=== PATIENT | female | born 1955 | race Caucasian/White ===

== ENCOUNTER 2020-10-15 08:25 | Outpatient (REF) | payer MEDICARE, SELFPAY ==
--- NOTE | 2020-10-15 | US_ITS ---
EXAMINATION: US ABDOMEN COMPLETE CLINICAL INFORMATION: Increased liver function. COMPARISON: MRI abdomen 12/27/2015. Ultrasound abdomen 08/19/2015. TECHNIQUE: Real-time imaging of the abdominal viscera. FINDINGS: PANCREAS: Normal. ABDOMINAL AORTA: The proximal, mid, and distal segments are normal in caliber. INFERIOR VENA CAVA: Visualized portions are normal. LIVER: The liver is normal in size. The liver contour is normal. There is diffuse increased liver echogenicity. There is a small anechoic cyst in the right hepatic lobe measuring 0.9 x 1.2 x 1.3 cm. No additional lesions seen. There is no intrahepatic biliary duct dilatation seen. GALLBLADDER: Normal. The gallbladder is physiologically distended without evidence of stones, sludge, polyps, wall thickening or pericholecystic fluid. COMMON BILE DUCT: Normal in caliber measuring 0.3 cm in diameter. RIGHT KIDNEY: Normal. No hydronephrosis. No renal calculi or focal parenchymal lesions. The kidney measures 12.2 cm in maximum dimension. LEFT KIDNEY: No hydronephrosis or renal calculi. The kidney measures 12.1 cm in maximum dimension. There is anechoic cyst in the upper pole measuring 1.2 x 1.4 x 1.3 cm. SPLEEN: Normal. The spleen measures 11.0 cm in maximum dimension. FREE FLUID: None. US/US abdomen complete IMPRESSION: Hepatic steatosis with a small anechoic cyst in the right lobe measuring 0.9 x 1.2 x 1.3 cm. Upper pole left renal cyst. The rest of the abdominal ultrasound is unremarkable.
--- NOTE | 2020-10-15 | US_ITS ---
EXAMINATION: US THYROID CLINICAL INFORMATION: Nontoxic goiter. COMPARISON: None TECHNIQUE: Linear transducer nagy-scale and color Doppler examination with attention to the region of the thyroid. FINDINGS: SIZE: Measurements of the thyroid lobes and nodules are given in sagittal, anteroposterior and transverse dimensions respectively. Right Thyroid Lobe: 5.0 x 2.3 x 1.7 cm, volume 10.2 mL. Parenchyma: The gland echotexture is homogeneous. Thyroid vascularity is normal. Left Thyroid Lobe: 5.0 x 1.8 x 1.7 cm, volume 7.7 mL. Parenchyma: The gland echotexture is homogeneous. Thyroid vascularity is normal. Isthmus: 0.2 cm in maximum AP dimension. RIGHT THYROID LOBE: There are 4 nodules seen. 1. Location: Mid. Size: 0.3 x 0.2 x 0.3 cm. Nodule characteristics: Hypoechoic, smoothly marginated with no intranodular flow, likely simple cyst. 2. Location: Mid. Size: 0.5 x 0.3 x 0.5 cm. Nodule characteristics: Hypoechoic, smoothly marginated with no intranodular flow, likely simple cyst. 3. Location: Lower. Size: 1.1 x 0.8 x 1.2 cm. Nodule characteristics: Hypoechoic, smoothly marginated with intranodular flow. 4. Location: Lower. Size: 0.5 x 0.4 x 0.5 cm. Nodule characteristics: Hypoechoic, smoothly marginated with intranodular flow. ISTHMUS: No nodules. LEFT THYROID LOBE: There are 4 nodules seen. 1. Location: Mid. Size: 0.7 x 0.3 x 0.4 cm. Nodule characteristics: Hypoechoic, smoothly marginated with no intranodular flow. 2. Location: Upper. Size: 0.5 x 0.3 x 0.3 cm. Nodule characteristics: Hypoechoic, smoothly marginated with no intranodular flow. 3. Location: Lower. Size: 1.5 x 0.9 x 1.5 cm. Nodule characteristics: Hypoechoic, solid and cystic, heterogeneous, smoothly marginated and no intranodular flow. 4. Location: Lower. Size: 0.7 x 0.3 x 0.4 cm. Nodule characteristics: Hypoechoic, smoothly marginated with no intranodular flow. NODES: No lymphadenopathy is seen in the tissue surrounding the thyroid gland. US/US thyroid IMPRESSION: Multiple bilateral pulmonary nodules. The largest 1.5 cm nodule in lower pole appears suspicious. As per ACR TI-RADS the nodule has 3 points and is mildly suspicious. A short term follow up can be performed in 3-6 months.
== END 2020-10-15 08:26 | disposition home or self-care (01) ==
LOC: HO.HMGCX 08:25
PROVIDERS: PCP Internal Medicine; Visit Provider Internal Medicine
DX: R79.89 Other specified abnormal findings of blood chemistry (principal); E04.1 Nontoxic single thyroid nodule
CPT/HCPCS: 76536; 76700

== ENCOUNTER → 2021-01-08 09:28 | Outpatient (BNVA) | payer MEDICARE, SELFPAY | PROVIDERS: PCP Internal Medicine; Referring Provider Internal Medicine; Visit Provider Internal Medicine | DX: E04.2 Nontoxic multinodular goiter (principal); E55.9 Vitamin D deficiency, unspecified | CPT/HCPCS: 99202 ==

== ENCOUNTER 2021-01-08 10:30 | Outpatient (REF) | payer MEDICARE, SELFPAY ==
[2021-01-08 14:55] LABS: Free T4 (Free Thyroxine) 0.93 ng/dL (0.71-1.85); Thyroid Stimulating Hormone 1.15 uIU/mL (0.32-4.0); Vitamin D 25-OH Total 17.5 ng/mL (>30)
== END 2021-01-08 10:31 | disposition home or self-care (01) ==
LOC: HO.10HDL 10:30
PROVIDERS: Visit Provider Internal Medicine
DX: E55.9 Vitamin D deficiency, unspecified (principal); E04.2 Nontoxic multinodular goiter
CPT/HCPCS: 36415; 82306; 84439; 84443

== ENCOUNTER 2021-01-09 07:29 | Outpatient (REF) | payer MEDICARE, SELFPAY ==
--- NOTE | 2021-01-09 08:47 | P.BOP_ITS ---
Brief Operative Note Date of Service: 01/09/21 Surgeon: Tameka Beach, DO This is doctor Tameka Beach. This is an ultrasound-guided fine-needle aspiration report. Date of Examination: 01/09/2021 Indication: Multinodular Thyroid Porcedure: Procedure was explained to the patient. Alternatives, the risk and benefits were discussed. Written consent was obtained. A time-out was also obtained. After sterile preparation, fine-needle aspiration of a Left Lower Pole 1.5 cm thyroid nodule was performed using direct ultrasound guidance to confirm accurate needle placement. Three aspirations were made using 27 gauge needles. Samples were submitted for cytology. One pass was dedicated for [facility]la [facility] Gene sequencing rerecording mixer testing. Our attention was then turned to the Right lobe. Fine-needle aspiration of a Right lower pole 1.2 cm thyroid nodule was performed using direct ultrasound g uidance to confirm accurate needle placement. Three aspirations were made using 27 gauge needles. Samples were submitted for cytology. One pass was dedicated for [employer] Gene sequencing rerecording mixer testing.The patient tolerated the procedure well. Aftercare instructions were provided. Impression: Uncomplicated fine needle aspiration biopsy of a Left lower pole 1.5 cm thyroid nodule, and a R lower pole 1.2 cm thyroid nodule under ultrasound guidance. Estimated blood loss (mL): 0
[2021-01-09] MEDS: Lidocaine HCl 1 % MPF 5 ML VIAL SUBCUT (11:42)
== END 2021-01-09 07:30 | disposition home or self-care (01) ==
LOC: HO.US 07:29
PROVIDERS: PCP Internal Medicine; Visit Provider Internal Medicine
DX: E04.2 Nontoxic multinodular goiter (principal)
CPT/HCPCS: 10005; 10006; 88172; 88173

== ENCOUNTER → 2021-02-27 07:27 | Outpatient (BNVA) | payer MEDICARE, SELFPAY | PROVIDERS: PCP Internal Medicine; Visit Provider Internal Medicine | CPT/HCPCS: Q3014 ==

== ENCOUNTER 2021-06-11 08:36 | Outpatient (REF) | payer MEDICARE, SELFPAY ==
--- NOTE | ~2021-06-11 | MM_ITS ---
EXAMINATION: BONE DENSITOMETRY CLINICAL INDICATION: Screening for osteoporosis. COMPARISON: None (current study represents initial baseline exam). TECHNIQUE: Using a AxioMx DXA System (software version: 13.1) manufactured by [employer], dual-energy x-ray absorptiometry was performed of the lumbar spine and left hip. The images are of good technical quality. Summary results are attached. FINDINGS: AP SPINE L1-L4 (excluding L3): The data of L1-L4 has been changed to exclude the L3 vertebral body, because degenerative changes at this level may cause overestimation of lumbar spine density. BMD 1.229 g/cm2, Z-score 0.9, T-score 0.5, normal. LEFT FEMUR, NECK: BMD 1.107 g/cm2, Z-score 1.3, T-score 0.5, normal. LEFT FEMUR, TOTAL: BMD 1.142 g/cm2, Z-score 1.5, T-score 1.1, normal. IDENTIFIED RISK FACTORS: Low calcium intake, secondary osteoporosis, anticonvulsants, menopause. HISTORY OF FRACTURE: None listed. MEDICATIONS: Vitamin D. MM/XR DEXA axial skeleton IMPRESSION: 1. DIAGNOSIS: Normal bone density based on the lowest T-score value of 0.5 in the spine and femoral neck applying World Health Organization criteria. 2. 10-YEAR FRACTURE RISK PREDICTION, FRAX: Major osteoporotic fracture (clinical spine, forearm, hip or shoulder) 6.0%. Hip fracture 0.1%. 3. Treatment Recommendations: NOF guidelines recommend consideration for treatment in postmenopausal women and men age 50 and older presenting with the following: -A hip or vertebral (clinical or morphometric) fracture. -T-score less than or equal to -2.5 at the femoral neck or spine after appropriate evaluation to exclude secondary causes. -Low bone mass at the hip or spine and a 10-year fracture probability by FRAX of greater than or equal to 3% for hip fracture or greater than or equal to 20% for major osteoporotic fracture based on the [place] adapted WHO algorithm. 4. Other Recommendations: All treatment decisions require clinical judgment and consideration of individual patient factors, including patient preferences, comorbidities, previous drug use, risk factors not captured in the FRAX model (e.g. frailty, falls, vitamin D deficiency, increased bone turnover, interval significant decline in bone density) and possible under or overestimation of fracture risk by FRAX. FUTURE SCAN RECOMMENDATION: People with diagnosed cases of osteoporosis or at high risk for fracture should have regular bone mineral density tests. For patients eligible for Medicare, routine testing is allowed once every 2 years. The testing frequency can be increased to one year for patients who have rapidly progressing disease, those who are receiving or discontinuing medical therapy to restore bone mass, or have additional risk factors.
== END 2021-06-11 08:37 | disposition home or self-care (01) ==
LOC: HO.MAMMO 08:36
PROVIDERS: PCP Internal Medicine; Visit Provider Internal Medicine
DX: Z13.820 Encounter for screening for osteoporosis (principal); M47.21 Other spondylosis with radiculopathy, occipito-atlanto-axial region; Z78.0 Asymptomatic menopausal state; Z79.899 Other long term (current) drug therapy
CPT/HCPCS: 77080

== ENCOUNTER 2022-02-27 13:23 | Outpatient (REF) | payer MEDICARE, SELFPAY ==
[2022-02-27 14:33] LABS: Free T4 (Free Thyroxine) 1.08 ng/dL (0.71-1.85); Thyroid Stimulating Hormone 1.32 uIU/mL (0.32-4.0)
== END 2022-02-27 13:24 | disposition home or self-care (01) ==
LOC: HO.LAB 13:23
PROVIDERS: PCP Internal Medicine; Visit Provider Internal Medicine
DX: E04.2 Nontoxic multinodular goiter (principal); E55.9 Vitamin D deficiency, unspecified
CPT/HCPCS: 36415; 82306; 84439; 84443

== ENCOUNTER 2022-03-02 08:15 | Outpatient (REF) | payer MEDICARE, SELFPAY ==
--- NOTE | ~2022-03-02 | US_ITS ---
EXAMINATION: US THYROID CLINICAL INFORMATION: Nontoxic multinodular goiter. COMPARISON: Ultrasound-guided thyroid biopsy 01/09/2021. Thyroid ultrasound 10/15/2020. TECHNIQUE: Linear transducer nagy-scale and color Doppler examination with attention to the region of the thyroid. FINDINGS: SIZE: Measurements of the thyroid lobes and nodules are given in sagittal, anteroposterior and transverse dimensions respectively. Right Thyroid Lobe: 5.6 x 2.0 x 1.6 cm, volume 9.4 mL. Previously 5.0 x 2.3 x 1.7 cm, volume 10.2 mL. Parenchyma: The gland echotexture is homogeneous. Thyroid vascularity is normal. Left Thyroid Lobe: 5.3 x 1.5 x 1.7 cm, volume 7.1 mL. Previously 5.0 x 1.8 x 1.7 cm, volume 7.7 mL. Parenchyma: The gland echotexture is homogeneous. Thyroid vascularity is normal. Isthmus: 0.3 cm in maximum AP dimension. Previously 0.2 cm. Estimated total number of nodules greater than or equal to 1 cm: 0. Learning [employer] nodules are described as follows: 1. Location: Right lateral lower pole. Size: 0.9 x 0.9 x 0.7 cm, volume 0.3 mL. Previously: 1.1 x 0.8 x 1.2 cm, volume 0.6 mL. Nodule characteristics: Composition: Solid (2). Echogenicity: Hypoechoic (2). Shape: Not taller than wide (0). Margins: Smooth (0). Echogenic Foci: None (0). ACR TI-RADS total points: 4 ACR TI-RADS category: 4 Significant change in size (>/= 20% in 2 dimensions and minimal increase of 2 mm or 50% or greater increase in volume): Change in features: Change in ACR TI-RADS risk category: 2. Location: Right lateral lower pole. Size: 0.5 x 0.4 x 0.3 cm, volume 0.03 mL. Previously: 0.5 x 0.4 x 0.6 cm, volume 0.1 mL. Nodule characteristics: Composition: Solid (2). Echogenicity: Isoechoic (1). Shape: Not taller than wide (0). Margins: Smooth (0). Echogenic Foci: None (0). ACR TI-RADS total points: 3 ACR TI-RADS category: 3 Significant change in size (>/= 20% in 2 dimensions and minimal increase of 2 mm or 50% or greater increase in volume): Change in features: Change in ACR TI-RADS risk category: 3. Location: Left lower pole. Size: 0.9 x 0.4 x 0.7 cm, volume 0.1 mL. Previously: 1.5 x 0.9 x 1.5 cm, volume 1.1 mL. Nodule characteristics: Composition: Solid/almost completely solid (2). Echogenicity: Hypoechoic (2). Shape: Not taller than wide (0). Margins: Smooth (0). Echogenic Foci: Comet-tail artifacts (0). ACR TI-RADS total points: 4 ACR TI-RADS category: 4 Significant change in size (>/= 20% in 2 dimensions and minimal increase of 2 mm or 50% or greater increase in volume): Change in features: Change in ACR TI-RADS risk category: NODES: No lymphadenopathy is seen in the tissue surrounding the thyroid gland. US/US thyroid IMPRESSION: No appreciable change in bilateral thyroid nodules. ACR TI-RADS RECOMMENDATION REFERENCE: Ultrasound-guided fine-needle aspiration, followup ultrasound, no further follow up. * TR1 (0 point) and TR 2 (2 points): No FNA or follow up * TR3 (3 points): FNA if more than or equal to 2.5 cm in maximum dimension, followup ultrasound in 1, 3 and 5 years if 1.5 to 2.4 cm in maximum dimension. * TR4 (4-6 points): FNA if more than or equal to 1.5 cm in maximum dimension, followup ultrasound in 1, 2, 3 and 5 years if 1 to 1.4 cm in maximum dimension. * TR5 (more than or equal to 7 points): FNA if more than or equal to 1 cm in maximum dimension, followup ultrasound every year for 5 years if 0.5 to 0.9 cm in maximum dimension. * TR3, TR4 or TR5 nodules that are below the size threshold for follow up receive no follow up.
== END 2022-03-02 08:16 | disposition home or self-care (01) ==
LOC: HO.US 08:15
PROVIDERS: Visit Provider Internal Medicine
DX: E04.2 Nontoxic multinodular goiter (principal)
CPT/HCPCS: 76536

== ENCOUNTER → 2022-03-04 07:35 | Outpatient (BNVA) | payer MEDICARE, SELFPAY | PROVIDERS: PCP Internal Medicine; Visit Provider Internal Medicine | DX: E04.2 Nontoxic multinodular goiter (principal); E55.9 Vitamin D deficiency, unspecified | CPT/HCPCS: Q3014 ==

== ENCOUNTER 2023-01-08 14:23 | Outpatient (REF) | payer MEDICARE, SELFPAY ==
--- NOTE | ~2023-01-08 | US_ITS ---
EXAMINATION: US THYROID CLINICAL INFORMATION: Nontoxic multinodular goiter. COMPARISON: Ultrasound soft tissue head/neck thyroid dated 03/02/2022. TECHNIQUE: Linear transducer grayscale and color Doppler examination with attention to the region of the thyroid. FINDINGS: SIZE: Measurements of the thyroid lobes and nodules are given in sagittal, anteroposterior and transverse dimensions respectively. Right Thyroid Lobe: 5.2 x 2.0 x 1.5 cm, volume 8.0 mL. Previously 5.6 x 2.0 x 1.6 cm, volume 9.4 mL. Parenchyma: The gland echotexture is heterogeneous. Thyroid vascularity is normal. Left Thyroid Lobe: 4.7 x 1.7 x 1.4 cm, volume 5.8 mL. Previously 5.3 x 1.5 x 1.7 cm, volume 7.1 mL. Parenchyma: The gland echotexture is heterogeneous. Thyroid vascularity is normal. Isthmus: 0.47 cm in maximum AP dimension. Previously 0.30 cm. Estimated total number of nodules greater than or equal to 1 cm: 2. [employer] nodules are described as follows: 1. Location: Right inferior. Size: 1.0 x 0.8x 1.0 cm, volume 0.40 mL. Previously: 1.1 x 0.8 x 1.2 cm, volume 0.60 mL. Nodule characteristics: Composition: Solid (2). Echogenicity: Hypoechoic (2). Shape: Not taller than wide (0). Margins: Smooth (0). Echogenic Foci: None (0). ACR TI-RADS total points: 4 ACR TI-RADS category: 4 Significant change in size (>/= 20% in 2 dimensions and minimal increase of 2 mm or 50% or greater increase in volume): No Change in features: No Change in ACR TI-RADS risk category: No 2. Location: Right mid. Size: 0.5 x 0.4 x 0.4 cm, volume 0.03 mL. Previously: Not seen on the previous study. Nodule characteristics: Composition: Solid (2). Echogenicity: Isoechoic (1). Shape: Not taller than wide (0). Margins: Smooth (0). ACR TI-RADS total points: 3 ACR TI-RADS category: 3 3. Location: Left inferior. Size: 1.0 x 0.9 x 0.1 cm, volume 0.43 mL. Previously: 1.5 x 0.90 x 1.5 cm, volume 1.1 mL. Nodule characteristics: Composition: Mixed cystic and solid (1). Echogenicity: Isoechoic (1). Shape: Not taller than wide (0). Margins: Smooth (0). Echogenic Foci: Comet-tail artifacts (0). ACR TI-RADS total points: 2 ACR TI-RADS category: 2 Significant change in size (>/= 20% in 2 dimensions and minimal increase of 2 mm or 50% or greater increase in volume): No Change in features: Yes Change in ACR TI-RADS risk category: Yes, now mixed solid and cystic Few additional subcentimeter cystic TR 1 or spongiform TR 1 nodules are also seen not requiring follow-up. NODES: No lymphadenopathy is seen in the tissue surrounding the thyroid gland. US/US thyroid IMPRESSION: A 1.0 cm TR 4 right inferior thyroid nodule is stable from prior and warrants continued imaging surveillance is below detailed. A 1.0 cm left inferior thyroid nodule is now mixed solid and cystic in appearance, decreasing the TI RADS score to 2, not warranting follow-up. Remainder of thyroid nodules do not meet criteria for follow-up. ACR TI-RADS RECOMMENDATION REFERENCE: Ultrasound-guided fine-needle aspiration, followup ultrasound, no further follow up. * TR1 (0 point) and TR2 (2 points): No FNA or follow up * TR3 (3 points): FNA if more than or equal to 2.5 cm in maximum dimension, followup ultrasound in 1, 3 and 5 years if 1.5 to 2.4 cm in maximum dimension. * TR4 (4-6 points): FNA if more than or equal to 1.5 cm in maximum dimension, followup ultrasound in 1, 2, 3 and 5 years if 1 to 1.4 cm in maximum dimension. * TR5 (more than or equal to 7 points): FNA if more than or equal to 1 cm in maximum dimension, followup ultrasound every year for 5 years if 0.5 to 0.9 cm in maximum dimension. * TR3, TR4 or TR5 nodules that are below the size threshold for follow up receive no follow up.
== END 2023-01-08 14:24 | disposition home or self-care (01) ==
LOC: HO.HMGCX 14:23
PROVIDERS: PCP Internal Medicine; Visit Provider Internal Medicine
DX: E04.2 Nontoxic multinodular goiter (principal)
CPT/HCPCS: 76536

== ENCOUNTER 2023-02-24 15:02 | Outpatient (REF) | payer MEDICARE, SELFPAY ==
[2023-02-24 18:29] LABS: Free T4 (Free Thyroxine) 0.98 ng/dL (0.71-1.85); Thyroid Stimulating Hormone 1.25 uIU/mL (0.32-4.0); Vitamin D 25-OH Total 30.1 ng/mL (>30)
== END 2023-02-24 15:03 | disposition home or self-care (01) ==
LOC: HO.HMGCLDS 15:02
PROVIDERS: PCP Internal Medicine; Visit Provider Internal Medicine
DX: E04.2 Nontoxic multinodular goiter (principal); E55.9 Vitamin D deficiency, unspecified
CPT/HCPCS: 36415; 82306; 84439; 84443

== ENCOUNTER → 2023-03-26 07:35 | Outpatient (BNVA) | payer MEDICARE, SELFPAY | PROVIDERS: PCP Internal Medicine; Visit Provider Internal Medicine | DX: E04.2 Nontoxic multinodular goiter (principal); E55.9 Vitamin D deficiency, unspecified | CPT/HCPCS: 99212 ==

== ENCOUNTER 2024-04-12 09:38 | Outpatient (REF) | payer MEDICARE, SELFPAY ==
[2024-04-12 14:26] LABS: Amylase 37 U/L (28-100)
[2024-04-12 14:29] LABS: Rheumatoid Factor < 13.0 IU/mL (<15.0)
== END 2024-04-12 09:39 | disposition home or self-care (01) ==
LOC: HO.CHCLDS 09:38
PROVIDERS: Visit Provider Internal Medicine
DX: M17.0 Bilateral primary osteoarthritis of knee (principal); E11.9 Type 2 diabetes mellitus without complications
CPT/HCPCS: 36415; 82150; 86431

== ENCOUNTER 2024-04-25 09:21 | Outpatient (REF) | payer MEDICARE, SELFPAY ==
[2024-04-25 14:48] LABS: Free T4 (Free Thyroxine) 1.02 ng/dL (0.71-1.85); Thyroid Stimulating Hormone 0.72 uIU/mL (0.32-4.0)
[2024-04-25 14:49] LABS: Vitamin D 25-OH Total 24.7 ng/mL (>30)
== END 2024-04-25 09:22 | disposition home or self-care (01) ==
LOC: HO.CHCLDS 09:21
PROVIDERS: Internal Medicine; Internal Medicine Endocrinology, Diabetes & Metabolism; Visit Provider Internal Medicine
DX: E04.2 Nontoxic multinodular goiter (principal); E55.9 Vitamin D deficiency, unspecified
CPT/HCPCS: 36415; 82306; 84439; 84443

== ENCOUNTER 2024-06-13 13:53 | Outpatient (REF) | payer MEDICARE, SELFPAY ==
--- NOTE | ~2024-06-13 | US_ITS ---
EXAMINATION: US THYROID CLINICAL INFORMATION: Nontoxic multinodular goiter. COMPARISON: Thyroid ultrasound 01/08/2023 and 03/02/2022. Ultrasound-guided FNA 01/09/2021. TECHNIQUE: Linear transducer grayscale and color Doppler examination with attention to the region of the thyroid. FINDINGS: SIZE: Measurements of the thyroid lobes and nodules are given in sagittal, anteroposterior and transverse dimensions respectively. Right Thyroid Lobe: 5.7 x 2.4 x 1.6 cm, volume 11.2 mL. Previously 5.2 x 2.0 x 1.5 cm, volume 8.0 mL. Parenchyma: The gland echotexture is heterogeneous. Thyroid vascularity is normal. Left Thyroid Lobe: 4.9 x 1.6 x 1.5 cm, volume 6.2 mL. Previously 4.7 x 1.7 x 1.4 cm, volume 5.8 mL. Parenchyma: The gland echotexture is heterogeneous. Thyroid vascularity is normal. Isthmus: 0.46 cm in maximum AP dimension. Previously 0.47 cm. Estimated total number of nodules greater than or equal to 1 cm: 2. [employer] nodules are described as follows: 1. Location: Right mid. Size: 0.60 x 0.30 x 0.50 cm, volume 0.04 mL. Previously: 0.60 x 0.35 x 0.41 cm, volume 0.05 mL. Nodule characteristics: Composition: Cystic(0). ACR TI-RADS total points: 0 Previous: 0 ACR TI-RADS category: 1 Previous: 1 Significant change in size (>/= 20% in 2 dimensions and minimal increase of 2 mm or 50% or greater increase in volume): No Change in features: No Change in ACR TI-RADS risk category: No 2. Location: Right inferior. Size: 1.0 x 0.70 x 1.1 cm, volume 0.43 mL. Previously: 1.0 x 0.76 x 1.0 cm, volume 0.40 mL. Nodule characteristics: Composition: Solid (2). Echogenicity: Very hypoechoic (3). Shape: Not taller than wide (0). Margins: Smooth (0). Echogenic Foci: None (0). ACR TI-RADS total points: 5 Previous: 4 ACR TI-RADS category: 4 Previous: 4 Significant change in size (>/= 20% in 2 dimensions and minimal increase of 2 mm or 50% or greater increase in volume): No Change in features: Yes Change in ACR TI-RADS risk category: Yes 3. Location: Left inferior. Size: 1.2 x 0.72 x 0.91 cm, volume 0.40 mL. Previously: 1.0 x 0.90 x 0.95 cm, volume 0.43 mL. Nodule characteristics: Composition: Mixed cystic and solid (1). Echogenicity: Hypoechoic (2). Shape: Not taller than wide (0). Margins: Smooth (0). Echogenic Foci: None (0). ACR TI-RADS total points: 3 Previous: 2 ACR TI-RADS category: 3 Previous: 2 Significant change in size (>/= 20% in 2 dimensions and minimal increase of 2 mm or 50% or greater increase in volume): No Change in features: Yes Change in ACR TI-RADS risk category: Yes 4. Location: Left mid. Size: 0.40 x 0.20 x 0.30 cm, volume 0.01 mL. Previously: Not documented on the previous study. Nodule characteristics: Composition: Cystic(0). ACR TI-RADS total points: 0 ACR TI-RADS category: 1 NODES: No lymphadenopathy is seen in the tissue surrounding the thyroid gland. US/US thyroid IMPRESSION: 1. Nodule in the midportion of the right thyroid lobe demonstrates stable maximum dimension of 0.6 cm with a stable TI-RADS category of 1. Nodule does not require follow-up. 2. Nodule in the lower portion of the right thyroid lobe demonstrates slight increased maximum dimension measuring 1.1 cm with a stable TI-RADS category 4. Follow-up as below. 3. Nodule in the inferior portion of the left thyroid lobe demonstrates increased maximum dimension now measuring 1.2 cm with a increase in TI-RADS category now3. Nodule does not require follow-up. 4. Nodule in the midportion of the left thyroid lobe measures of 0.4 cm with a TI-RADS category of 1. Nodule does not require follow-up. 5. Bilateral thyroid lobes demonstrate heterogeneous echotexture with normal vascularity. 6. No lymphadenopathy noted. ACR TI-RADS RECOMMENDATION REFERENCE: Ultrasound-guided fine-needle aspiration, follow up ultrasound, no further followup. * TR1 (0 point): No FNA or followup * TR3 (3 points): FNA if more than or equal to 2.5 cm in maximum dimension, follow up ultrasound in 1, 3 and 5 years if 1.5 to 2.4 cm in maximum dimension. * TR4 (4-6 points): FNA if more than or equal to 1.5 cm in maximum dimension, follow up ultrasound in 1, 2, 3 and 5 years if 1 to 1.4 cm in maximum dimension. * TR3, TR4 nodules that are below the size threshold for follow up receive no followup. Electronically signed by: Man Perez MD 06/24/2024 02:57 PM EDT
== END 2024-06-13 13:54 | disposition home or self-care (01) ==
LOC: HO.HMGCX 13:53
PROVIDERS: PCP Internal Medicine; Visit Provider Internal Medicine Endocrinology, Diabetes & Metabolism
DX: E04.2 Nontoxic multinodular goiter (principal)
CPT/HCPCS: 76536

== ENCOUNTER 2024-06-14 10:00 | Outpatient (AMB) | payer MEDICARE, SELFPAY ==
--- NOTE | 2024-06-14 10:01 | A.OFFVIS_ITS ---
Vital Signs 06/14/24 10:03 Weight 222 lb 0.088 oz BP not taken reason Patient Refused Intake Visit Reasons: F/U NTMNG Needs 40 min-lvm Intake Note: Patient present today for NTMNG follow up. 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 Patient last saw Dr. Harper 03/26/2023 Was initially diagnosed with multinodular thyroid in 2016. Denies any compressive symptoms. Denies any symptoms of hyper or hypothyroidism. Denies any history of head or neck irradiation. Denies any family history of thyroid cancer. Sister did have a thyroidectomy due to a goiter, but she reports no nodules or cancer. Underwent FNA Biopsy 01/09/2021 by me with results detailed below: 1. LLP 1.5 cm thyroid nodule - cytology benign 2. RLP 1.2 cm thyroid nodule - cytology atypia of undetermined significance ( bethesda category III) with benign affirma Thyroid US: 01/08/2023 Right Thyroid Lobe: 5.2 x 2.0 x 1.5 cm, volume 8.0 mL. Previously 5.6 x 2.0 x 1.6 cm, volume 9.4 mL. Parenchyma: The gland echotexture is heterogeneous. Thyroid vascularity is normal. Left Thyroid Lobe: 4.7 x 1.7 x 1.4 cm, volume 5.8 mL. Previously 5.3 x 1.5 x 1.7 cm, volume 7.1 mL. Parenchyma: The gland echotexture is heterogeneous. Thyroid vascularity is normal. Isthmus: 0.47 cm in maximum AP dimension. Previously 0.30 cm. Estimated total number of nodules greater than or equal to 1 cm: 2. Rim Technician nodules are described as follows: 1.? Location: Right inferior. ?? ? Size: 1.0 x 0.8x 1.0 cm, volume 0.40 mL. ?? ? Previously: 1.1 x 0.8 x 1.2 cm, volume 0.60 mL. ?? ? Nodule characteristics: ?? ? Composition: Solid (2). ?? ? Echogenicity: Hypoechoic (2). ?? ? Shape: Not taller than wide (0). ?? ? Margins: Smooth (0). ?? ? Echogenic Foci: None (0). ? ACR TI-RADS total points: 4 ?? ? ACR TI-RADS category: 4 ? Significant change in size (>/= 20% in 2 dimensions and minimal increase of 2 mm or 50% or greater increase in volume): No ?? ? Change in features: No ?? ? Change in ACR TI-RADS risk category: No 2.? Location: Right mid. ?? ? Size: 0.5 x 0.4 x 0.4 cm, volume 0.03 mL. ?? ? Previously: Not seen on the previous study. ? Nodule characteristics: ?? ? Composition: Solid (2). ?? ? Echogenicity: Isoechoic (1). ?? ? Shape: Not taller than wide (0). ?? ? Margins: Smooth (0). ?? ? ACR TI-RADS total points: 3 ?? ? ACR TI-RADS category: 3 ?? ? 3.? Location: Left inferior. ?? ? Size: 1.0 x 0.9 x 0.1 cm, volume 0.43 mL. ?? ? Previously: 1.5 x 0.90 x 1.5 cm, volume 1.1 mL. ?? ? Nodule characteristics: ?? ? Composition: Mixed cystic and solid (1). ?? ? Echogenicity: Isoechoic (1). ?? ? Shape: Not taller than wide (0). ?? ? Margins: Smooth (0). ?? ? Echogenic Foci: Comet-tail artifacts (0).? ACR TI-RADS total points: 2 ?? ? ACR TI-RADS category: 2 ? Significant change in size (>/= 20% in 2 dimensions and minimal increase of 2 mm or 50% or greater increase in volume): No ?? ? Change in features: Yes ?? ? Change in ACR TI-RADS risk category: Yes, now mixed solid and cystic Few additional subcentimeter cystic TR 1 or spongiform TR 1 nodules are also seen not requiring follow-up. NODES: No lymphadenopathy is seen in the tissue surrounding the thyroid gland. Labs: Laboratory Tests 02/24/23 15:15 25-OH Vitamin D Total 30.1 TSH 1.25 Free T4 0.98 thyroid ultrasound performed 06/13/2024 results still pending [facility] Medical History Multinodular thyroid T2DM (type 2 diabetes mellitus) Vitamin D deficiency Surgical History History of Hx of eye surgery Hx of tonsillectomy Hx of removal of cyst Hx of tubal ligation History of esophagogastroduodenoscopy (EGD) Family History Father Liver cancer Stomach cancer Mother No problems noted. Maternal Grandfather Diabetes Maternal Grandmother Diabetes Unknown Hypertension Sister Goiter Social History Alcohol intake: never Cigarette Packs Per Day: 1 Years Smoked: 24 Physical Exam Const Other: Thyroid gland is normal size weighs by 15 g. There are no palpable thyroid nodules Assessment & Plan Assessment & Plan (1) Multinodular thyroid: Code(s): E04.2 - Nontoxic multinodular goiter Category: Medical Plan: This 68-year-old white female with a history of multinodular goiter underwent FNA Biopsy 01/09/2021 by me with results detailed below: 1. LLP 1.5 cm thyroid nodule - cytology benign 2. RLP 1.2 cm thyroid nodule - cytology atypia of undetermined significance (bethesda category III) with benign affirma Appears to be clinically and biochemically euthyroid. Plan is to review the ultrasound report when available. Will have patient fo llow-up with Dr. Acevedo the maintenance truck driver to joint are practice with expertise in thyroid ultrasound Coding Level of Care Code Est Pt Level 3 (82315) Diagnoses Multinodular thyroid E04.2
== END 2024-06-14 10:30 | disposition home or self-care (01) ==
PROVIDERS: PCP Internal Medicine; Visit Provider Internal Medicine Endocrinology, Diabetes & Metabolism
DX: E04.2 Nontoxic multinodular goiter (principal)
CPT/HCPCS: 99213

== ENCOUNTER → 2024-06-14 10:00 | Outpatient (BNVA) | payer MEDICARE, SELFPAY | PROVIDERS: PCP Internal Medicine; Visit Provider Internal Medicine Endocrinology, Diabetes & Metabolism | DX: E04.2 Nontoxic multinodular goiter (principal) | CPT/HCPCS: 99212 ==

== ENCOUNTER 2024-06-23 10:03 | Outpatient (REF) | payer MEDICARE, SELFPAY ==
[2024-06-23 15:29] LABS: Alanine Aminotransferase 51 U/L (0-31); Albumin Level 4.6 g/dL (3.5-5.0); Alkaline Phosphatase 84 U/L (39-117); Anion Gap 15 (12-20); Aspartate Amino Transferase 29 U/L (5-31); Bilirubin Direct 0.2 mg/dL (0.0-0.5); Bilirubin Total 0.6 mg/dL (0.0-1.0); Blood Urea Nitrogen 10 mg/dL (9-16); Carbon Dioxide 24 mmol/L (22-29); Chloride 104 mmol/L (96-108); Cholesterol 200 mg/dL (<200); Estimated Glomerular Filt Rate > 60; Glucose Random 224 mg/dL (60-115); HDL Cholesterol 43 mg/dL (>40); LDL Cholesterol Calculated 133 mg/dL (<100); Potassium 4.1 mmol/L (3.3-5.1); Sodium 139 mmol/L (135-145); Total Protein 7.4 g/dL (6.5-8.0); Triglycerides 121 mg/dL (<150)
== END 2024-06-23 10:04 | disposition home or self-care (01) ==
LOC: HO.CHCLDS 10:03
PROVIDERS: Visit Provider Student in an Organized Health Care Education/Training Program
DX: E11.9 Type 2 diabetes mellitus without complications (principal); Z79.4 Long term (current) use of insulin
CPT/HCPCS: 36415; 80048; 80061; 80076

== ENCOUNTER 2024-08-04 13:36 | Outpatient (REF) | payer MEDICARE, SELFPAY ==
[2024-08-04 14:56] LABS: Creatinine Urine 74.86 mg/dL; Microalbum/Creatinine Ratio Ur 21.3 ug/mg cr (<30)
[2024-08-05 08:24] LABS: ~HepC Num1 0.06 S/CO (0.00-0.79); ~Hepatitis C Antibody Nonreactive (Nonreactive)
== END 2024-08-04 13:37 | disposition home or self-care (01) ==
LOC: HO.CHCLDS 13:36
PROVIDERS: Visit Provider Internal Medicine
DX: R74.01 Elevation of levels of liver transaminase levels (principal); E11.9 Type 2 diabetes mellitus without complications
CPT/HCPCS: 36415; 82043; 82570; 86803

== ENCOUNTER 2024-08-10 08:28 | Outpatient (REF) | payer MEDICARE, SELFPAY ==
--- NOTE | ~2024-08-10 | US_ITS ---
EXAMINATION: US ABDOMEN COMPLETE CLINICAL INFORMATION: Transaminitis. COMPARISON: Ultrasound abdomen 10/15/2020 and 08/19/2015. MRI abdomen 12/27/2015. TECHNIQUE: Real-time imaging of the abdominal viscera. FINDINGS: PANCREAS: Poorly visualized. ABDOMINAL AORTA: Limited visualization of the abdominal aorta. Imaged portions of the abdominal aorta are within normal limits in caliber. INFERIOR VENA CAVA: Visualized portions are normal. LIVER: Hepatomegaly, 21.1 cm, although measurements are approximate. Increased hepatic parenchymal heterogeneity and echogenicity could be associated with hepatocellular disease/hepatic steatosis and severely limits visualization. Correlation with liver function tests and clinical exam recommended to determine further management. A 0.8 cm superficial complex right hepatic cyst. Ultrasound of 10/15/2020 demonstrated a 1.2 cm cyst. GALLBLADDER: No gallstones. No gallbladder wall thickening. COMMON BILE DUCT: Normal in caliber measuring 0.39 cm in diameter. RIGHT KIDNEY: No hydronephrosis. No renal calculi. Limited visualization. The kidney measures 12.8 cm in maximum dimension. LEFT KIDNEY: A 0.7 cm left calculus. Limited visualization. A 1.8 cm upper pole cyst with benign features. There is no specific indication for additional imaging at this time. No hydronephrosis. The kidney measures 11.8 cm in maximum dimension. SPLEEN: Limited visualization. The spleen measures 11.2 cm in maximum dimension. FREE FLUID: None. US/US abdomen complete IMPRESSION: 1. Hepatomegaly, 21.1 cm, although measurements are approximate. Increased hepatic parenchymal heterogeneity and echogenicity could be associated with hepatocellular disease/hepatic steatosis and severely limits visualization. Correlation with liver function tests and clinical exam recommended to determine further management. 2. A 0.8 cm superficial complex right hepatic cyst. Ultrasound of 10/15/2020 demonstrated a 1.2 cm cyst. 3. A 0.7 cm left renal calculus. No hydronephrosis. Electronically signed by: Geraldine Kern MD 08/27/2024 09:00 PM [facility]
== END 2024-08-10 08:29 | disposition home or self-care (01) ==
LOC: HO.HMGCX 08:28
PROVIDERS: PCP Internal Medicine; Visit Provider Internal Medicine
DX: R74.01 Elevation of levels of liver transaminase levels (principal)
CPT/HCPCS: 76700

== ENCOUNTER → 2024-09-01 07:49 | Outpatient (REF) | payer MEDICARE, SELFPAY ==
--- NOTE | 2024-09-01 07:52 | CA_ITS ---
Transthoracic Echocardiogram Patient (Last, First, Middle): Rhiannon Thorne, Gender: Female Date of : 1955 Age: 68 Procedure Date: 09/01/2024 Procedure Type: Transthoracic Echocardiogram Location: OP Height: 177.8 cm Weight: 97.52 kg BSA: 2.15 m2 Heart Rate: bpm BP: 124 / 80 mmHg Global Engineering Manager: Referring MD: John Carter MD Special Education Professor: Tesfaye Raymundo MD Symptoms: R07.89 CHEST PAIN Study Quality: Good ECG Rhythm: Sinus Conclusions: - 1. Normal LV ejection fraction of 60 65% with impaired relaxation filling pattern 2. Mild aortic regurgitation 3. Normal RV systolic pressure 4. No gross pericardial effusion Findings Left Ventricle Normal left ventricular size, thickness, and systolic function. The visually estimated ejection fraction is between 60-65%. Spectral Doppler is indicative of an impaired relaxation filling pattern. E/E prime ratio is between 8 and 15 consistent with indeterminate filling pressures. Right Ventricle Normal right ventricular cavity size and systolic function. Atria Both atria are normal in size. There is no evidence of interatrial shunt. Aortic Valve Normal aortic valve structure and function. There is no aortic valve stenosis. There is mild aortic valve regurgitation. Mitral Valve Normal mitral valve structure and function. There is trace mitral valve regurgitation. There is no mitral valve stenosis. Pulmonic Valve The pulmonic valve is likely normal. There is trace pulmonic valve regurgitation. Tricuspid Valve Normal tricuspid valve structure. There is trace tricuspid valve regurgitation. The right ventricular systolic pressure is normal. The right ventricular systolic pressure is 17 mmHg. Normal right atrial pressure. There is no evidence of pulmonary hypertension. Great Vessels All visible segments of the aorta are normal in size. The pulmonary artery was not well visualized. Venous The inferior vena cava is normal in size and collapses greater than 50% with inspiration. Pericardium/Pleural There is no evidence of pericardial effusion. Prior Study Comparison No significant change compared to prior study dated: 11/09/2017. Measurements 2D Linear Measurements IVSd: 1.07 0.6-0.9/0.6-1.0 cm LVIDd: 4.56 3.9-5.3/4.2-5.9 cm LVIDd Index: 2.12 2.4-3.2/2.2-3.1 cm/m2 LVIDs: 2.97 2.0-3.6 cm LVPWd: 1.03 0.7-1.1 cm Ao Root: 3.10 2.1-3.5 cm LA Diam: 3.40 2.7-3.8/3.0-4.0 cm LAIDs Index: 1.58 1.5-2.3 cm/m2 LV Mass: 208.61 67-162/88-224 g LV Mass Index: 97.03 43-95/49-115 g/m2 LVOT Diam: 2.10 3.0+(-)1.3 cm Mitral Valve MV Pk E: 0.62 MV PK A: 1.19 MV Decel Time: 223.00 E/A: 0.50 E'Lateral: 6.85 E'Medial: 5.22 E/E' Med: 11.80 E/E' Lat: 9.00 PHT: 65.00 MVA PHT: 3.38 Decel [place]: 2.78 Aortic Valve AoV Pk Collin: 1.72 AoV Mn Collin: 1.11 AoV VTI: 0.44 AoV Pk Grad: 12.00 Aov Mn Grad: 6.00 POPEYE Cont.VTI: 2.72 LVOT LVOT Pk Collin: 1.38 LVOT Mn Collin: 0.96 LVOT VTI: 0.35 LVOT Pk Grad: 8.00 LVOT Mn Grad: 4.00 LVOT Diam: 2.10 LVOT Area: 3.46 Diastolic Function MV Pk E: 0.62 MV Pk A: 1.19 E/A: 0.50 E'Medial: 5.22 E/E' Med: 11.80 E' Laterial: 6.85 E/E' Lat: 9.00 Right Ventricle TAPSE (mm): 25.00 TVS' Collin: 9.00 Tricuspid Valve TR Pk Collin: 1.85 TR Pk Grad: 14.00 RA Press: 3.00 RVSP: 17.00 Great Vessels Aorta Ao Root-2D: 3.10 2.0-3.7 cm Ao Asc: 3.50 2.1-3.4 cm Pulmonary Valve PV Pk Collin: 0.87 Peak PV Grad: 3.00 Updated in Other Vendor System with Status of Final Tesfaye Raymundo MD electronically signed on 09/01/2024 4:38:07 PM with status of Final
== END ==
LOC: HO.CARD 07:49
PROVIDERS: PCP Internal Medicine; Visit Provider Internal Medicine
DX: R07.89 Other chest pain (principal)
CPT/HCPCS: 93306

== ENCOUNTER → 2024-09-01 07:52 | Outpatient (BNV) | payer MEDICARE, SELFPAY | PROVIDERS: PCP Internal Medicine; Visit Provider Internal Medicine Cardiovascular Disease | DX: I35.1 Nonrheumatic aortic (valve) insufficiency (principal) | CPT/HCPCS: 93306 ==

== ENCOUNTER 2024-09-14 10:02 | Outpatient (AMB) | payer MEDICARE, SELFPAY ==
--- NOTE | 2024-09-14 10:03 | A.OFFVIS_ITS ---
Vital Signs 09/14/24 10:05 Weight 221 lb BP not taken reason Patient Refused Pulse 51 Pulse Source Pulse Oximeter Intake Visit Reasons: F/U NTMNG-confirmed Intake Note: Patient present today for NTMNG follow up visit. 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 HPI from prior visit Was initially diagnosed with multinodular thyroid in 2015. Underwent FNA Biopsy 01/09/[address] Harper with results detailed below: 1. LLP 1.5 cm thyroid nodule - cytology benign 2. RLP 1.2 cm thyroid nodule - cytology atypia of undetermined significance (bethesda category III) with benign affirma Most recent thyroid ultrasound 06/13/2024, showed stable size of the right mid lobe cyst, showed stable size of the right inferior nodule which has previously been biopsied at 1 cm, solid, very hypoechoic, TR 4 category, showed stable size of the left inferior 1.2 cm nodule which is also previously been biopsied, mixed cystic and solid, labeled as hypoechoic but mostly I see this is cystic,, as well new subcentimeter cyst in the left mid lobe. Denies any compressive symptoms. Denies any symptoms of hyper or hypothyroidism. Denies any history of head or neck irradiation. Denies any family history of thyroid cancer. Sister did have a thyroidectomy due to a goiter, but she reports no nodules or cancer. Physical exam General: sitting comfortably in no acute distress HEENT: normocephalic/atraumatic, moist oral mucosa Neck: supple, symmetrical, no thyromegaly , Cardiac: normal heart sounds Pulm: normal breath sounds B/L, no added breath sounds Abd: not distended, no tenderness Extremities: no edema, no signs of myxedema Laboratory Tests 04/25/24 Unknown 25-OH Vitamin D Total 24.7 L TSH 0.72 Free T4 1.02 Imaging US THYROID 06/13/24 CLINICAL INFORMATION: Nontoxic multinodular goiter. COMPARISON: Thyroid ultrasound 01/08/2023 and 03/02/2022. Ultrasound-guided FNA 01/09/2021. TECHNIQUE: Linear transducer grayscale and color Doppler examination with attention to the region of the thyroid. FINDINGS: SIZE: Measurements of the thyroid lobes and nodules are given in sagittal, anteroposterior and transverse dimensions respectively. Right Thyroid Lobe: 5.7 x 2.4 x 1.6 cm, volume 11.2 mL. Previously 5.2 x 2.0 x 1.5 cm, volume 8.0 mL. Parenchyma: The gland echotexture is heterogeneous. Thyroid vascularity is normal. Left Thyroid Lobe: 4.9 x 1.6 x 1.5 cm, volume 6.2 mL. Previously 4.7 x 1.7 x 1.4 cm, volume 5.8 mL. Parenchyma: The gland echotexture is heterogeneous. Thyroid vascularity is normal. Isthmus: 0.46 cm in maximum AP dimension. Previously 0.47 cm. Estimated total number of nodules greater than or equal to 1 cm: 2. Dyeing Machine Tender nodules are described as follows: 1. Location: Right mid. Size: 0.60 x 0.30 x 0.50 cm, volume 0.04 mL. Previously: 0.60 x 0.35 x 0.41 cm, volume 0.05 mL. Nodule characteristics: Composition: Cystic(0). ACR TI-RADS total points: 0 Previous: 0 ACR TI-RADS category: 1 Previous: 1 Significant change in size (>/= 20% in 2 dimensions and minimal increase of 2 mm or 50% or greater increase in volume): No Change in features: No Change in ACR TI-RADS risk category: No 2. Location: Right inferior. Size: 1.0 x 0.70 x 1.1 cm, volume 0.43 mL. Previously: 1.0 x 0.76 x 1.0 cm, volume 0.40 mL. Nodule characteristics: Composition: Solid (2). Echogenicity: Very hypoechoic (3). Shape: Not taller than wide (0). Margins: Smooth (0). Echogenic Foci: None (0). ACR TI-RADS total points: 5 Previous: 4 ACR TI-RADS category: 4 Previous: 4 Significant change in size (>/= 20% in 2 dimensions and minimal increase of 2 mm or 50% or greater increase in volume): No Change in features: Yes Change in ACR TI-RADS risk category: Yes 3. Location: Left inferior. Size: 1.2 x 0.72 x 0.91 cm, volume 0.40 mL. Previously: 1.0 x 0.90 x 0.95 cm, volume 0.43 mL. Nodule characteristics: Composition: Mixed cystic and solid (1). Echogenicity: Hypoechoic (2). Shape: Not taller than wide (0). Margins: Smooth (0). Echogenic Foci: None (0). ACR TI-RADS total points: 3 Previous: 2 ACR TI-RADS category: 3 Previous: 2 Significant change in size (>/= 20% in 2 dimensions and minimal increase of 2 mm or 50% or greater increase in volume): No Change in features: Yes Change in ACR TI-RADS risk category: Yes 4. Location: Left mid. Size: 0.40 x 0.20 x 0.30 cm, volume 0.01 mL. Previously: Not documented on the previous study. Nodule characteristics: Composition: Cystic(0). ACR TI-RADS total points: 0 ACR TI-RADS category: 1 NODES: No lymphadenopathy is seen in the tissue surrounding the thyroid gland. US/US thyroid IMPRESSION: 1. Nodule in the midportion of the right thyroid lobe demonstrates stable maximum dimension of 0.6 cm with a stable TI-RADS category of 1. Nodule does not require follow-up. 2. Nodule in the lower portion of the right thyroid lobe demonstrates slight increased maximum dimension measuring 1.1 cm with a stable TI-RADS category 4. Follow-up as below. 3. Nodule in the inferior portion of the left thyroid lobe demonstrates increased maximum dimension now measuring 1.2 cm with a increase in TI-RADS category now3. Nodule does not require follow-up. 4. Nodule in the midportion of the left thyroid lobe measures of 0.4 cm with a TI-RADS category of 1. Nodule does not require follow-up. 5. Bilateral thyroid lobes demonstrate heterogeneous echotexture with normal vascularity. 6. No lymphadenopathy noted. Thyroid US: 01/08/2023 Right Thyroid Lobe: 5.2 x 2.0 x 1.5 cm, volume 8.0 mL. Previously 5.6 x 2.0 x 1.6 cm, volume 9.4 mL. Parenchyma: The gland echotexture is heterogeneous. Thyroid vascularity is normal. Left Thyroid Lobe: 4.7 x 1.7 x 1.4 cm, volume 5.8 mL. Previously 5.3 x 1.5 x 1.7 cm, volume 7.1 mL. Parenchyma: The gland echotexture is heterogeneous. Thyroid vascularity is normal. Isthmus: 0.47 cm in maximum AP dimension. Previously 0.30 cm. Estimated total number of nodules greater than or equal to 1 cm: 2. Dyeing Machine Tender nodules are described as follows: 1.? Location: Right inferior. ?? ? Size: 1.0 x 0.8x 1.0 cm, volume 0.40 mL. ?? ? Previously: 1.1 x 0.8 x 1.2 cm, volume 0.60 mL. ?? ? Nodule characteristics: ?? ? Composition: Solid (2). ?? ? Echogenicity: Hypoechoic (2). ?? ? Shape: Not taller than wide (0). ?? ? Margins: Smooth (0). ?? ? Echogenic Foci: None (0). ? ACR TI-RADS total points: 4 ?? ? ACR TI-RADS category: 4 ? Significant change in size (>/= 20% in 2 dimensions and minimal increase of 2 mm or 50% or greater increase in volume): No ?? ? Change in features: No ?? ? Change in ACR TI-RADS risk category: No 2.? Location: Right mid. ?? ? Size: 0.5 x 0.4 x 0.4 cm, volume 0.03 mL. ?? ? Previously: Not seen on the previous study. ? Nodule characteristics: ?? ? Composition: Solid (2). ?? ? Echogenicity: Isoechoic (1). ?? ? Shape: Not taller than wide (0). ?? ? Margins: Smooth (0). ?? ? ACR TI-RADS total points: 3 ?? ? ACR TI-RADS category: 3 ?? ? 3.? Location: Left inferior. ?? ? Size: 1.0 x 0.9 x 0.1 cm, volume 0.43 mL. ?? ? Previously: 1.5 x 0.90 x 1.5 cm, volume 1.1 mL. ?? ? Nodule characteristics: ?? ? Composition: Mixed cystic and solid (1). ?? ? Echogenicity: Isoechoic (1). ?? ? Shape: Not taller than wide (0). ?? ? Margins: Smooth (0). ?? ? Echogenic Foci: Comet-tail artifacts (0).? ACR TI-RADS total points: 2 ?? ? ACR TI-RADS category: 2 ? Significant change in size (>/= 20% in 2 dimensions and minimal increase of 2 mm or 50% or greater increase in volume): No ?? ? Change in features: Yes ?? ? Change in ACR TI-RADS risk category: Yes, now mixed solid and cystic Few additional subcentimeter cystic TR 1 or spongiform TR 1 nodules are also seen not requiring follow-up. NODES: No lymphadenopathy is seen in the tissue surrounding the thyroid gland. Labs: Laboratory Tests [facility] Medical History T2DM (type 2 diabetes mellitus) Vitamin D deficiency Multinodular thyroid Surgical History History of Hx of eye surgery Hx of tonsillectomy Hx of removal of cyst Hx of tubal ligation History of esophagogastroduodenoscopy (EGD) Family History Father Liver cancer Stomach cancer Mother No problems noted. Maternal Grandfather Diabetes Maternal Grandmother Diabetes Unknown Hypertension Sister Goiter Social History Alcohol intake: never Cigarette Packs Per Day: 1 Years Smoked: 24 Assessment & Plan Assessment & Plan (1) Multinodular thyroid: Code(s): E04.2 - Nontoxic multinodular goiter Category: Medical Plan: 68-year-old female with no personal history of head or neck radiation, with no family history of thyroid cancer coming in today for follow up of nontoxic multinodular goiter. Diagnosed with multinodular goiter in 2016. Underwent FNA Biopsy 01/09/[address] Harper with results detailed below: 1. LLP 1.5 cm thyroid nodule - cytology benign 2. RLP 1.2 cm thyroid nodule - cytology atypia of undetermined significance (bethesda category III) with benign affirma Most recent thyroid ultrasound 06/13/2024, showed stable size of the right mid lobe cyst, showed stable size of the right inferior nodule which has previously been biopsied at 1 cm, solid, very hypoechoic, TR 4 category, showed stable size of the left inferior 1.2 cm nodule which is also previously been biopsied, mixed cystic and solid, labeled as hypoechoic but mostly I see this is cystic,, as well new subcentimeter cyst in the left mid lobe. Denies any compressive symptoms. Given the appearance of the right inferior lobe nodule which is quite hypoechoic and TR 4 category I will plan to repeat an ultrasound in 1 year. Other nodules appear benign or very low suspicion with less than 3% chance of malignancy per BERNARD criteria. The right inferior nodule has been biopsied before in 2020 and was benign and remains stable in size however I will plan to follow up this nodule in 1 year with repeat ultrasound. Plan: -ordered TSH, free T4 to be done in 1 year prior to appointment -ordered thyroid ultrasound to be done in 1 year prior to follow up (2) Vitamin D deficiency: Code(s): E55.9 - Vitamin D deficiency, unspecified Category: Medical Plan: Vitamin-D from April 2024 noted to be at 24. She is not taking vitamin-D supplements. I have prescribed vitamin-D 2000 units daily. She can have her primary care check follow up on the vitamin-D level in 3 months. Advised patient about this. Plan I spent 30 minutes in reviewing the record, seeing the patient and documenting in the medical record. Orders: Orders US thyroid 1 Year E04.2 - Nontoxic multinodular goiter, E55.9 - Vitamin D deficiency, unspecified Thyroid Stimulating Hormone 1 Year E04.2 - Nontoxic multinodular goiter, E55.9 - Vitamin D deficiency, unspecified Free T4 (Free Thyroxine) 1 Year E04.2 - Nontoxic multinodular goiter, E55.9 - Vitamin D deficiency, unspecified Medications: Refilled cholecalciferol (vitamin D3) (Vitamin D3) 50 mcg PO DAILY 90 caps 1RF E55.9 - Vitamin D deficiency, unspecified Patient Instructions: Do ultrasound thyroid in 1 year , make sure you schedule it a couple of weeks before my appointment and do blood work a few days prior to your next appointment with me in 1 year Take vitamin D 2000 units daily, ask your primary care to check levels in 3 months Coding Level of Care Code Est Pt Level 4 (22767) Diagnoses Multinodular thyroid E04.2 Vitamin D deficiency E55.9 Time Spent (min) 30
[2024-09-14 10:05] VITALS: PULSE 51
--- OUTSIDE RECORDS SUMMARY | 2024-09-20 01:27 | XMS_ITS ---
Author Name [facility] Organization Unknown History of Medication Use Medication Directions Dispensed Refills Start Date End Date Stat us traMADol (ULTRAM) 50 MG tablet Take 1 tablet (50 mg total) by mouth 4 times daily (every 6 hours) as needed for severe pain. 07/15/2024 active HYDROcodone-acetamin ophen (NORCO) 5-325 mg per tablet Take 1 tablet by mouth 4 times daily (every 6 hours) as needed for severe pain. Max Daily Amount: 4 tablets 07/08/2024 active Problems Problem Status Onset Date Problem Type Date of Resoluti on Source S/P cubital tunnel release active EncounterDiagnosisAct HHCCT Bilateral carpal tunnel syndrome active EncounterDiagnosisAct [facility]
== END 2024-09-14 10:29 | disposition home or self-care (01) ==
PROVIDERS: PCP Internal Medicine; Visit Provider Student in an Organized Health Care Education/Training Program
DX: E04.2 Nontoxic multinodular goiter (principal); E55.9 Vitamin D deficiency, unspecified
CPT/HCPCS: 99214

== ENCOUNTER → 2024-09-14 10:02 | Outpatient (BNVA) | payer MEDICARE, SELFPAY | PROVIDERS: PCP Internal Medicine; Visit Provider Student in an Organized Health Care Education/Training Program | DX: E04.2 Nontoxic multinodular goiter (principal); E55.9 Vitamin D deficiency, unspecified | CPT/HCPCS: 99212 ==

== ENCOUNTER 2025-01-23 10:31 | Outpatient (REF) | payer MEDICARE, SELFPAY ==
--- OUTSIDE RECORDS SUMMARY | 2025-01-23 12:39 | XMS_ITS | Encounter Summary ---
Author Organization [facility] Address [address] [place] [address] Care Team Providers Care Cath Lab Technologist Name Role Phone John Carter MD Primary Care Provider [phone] Encounter Details Date Type Department Care Team (Late st Contact Info) Description 07/11/2024 OA Surg Order [facility] [address] [phone] Jose Jamil MD [address] [address] Social History Tobacco Use Types Packs/Day Years Used Date Smoking Tobacco: Never Assessed Sex and Gender Information Value Date Recorded Sex Assigned at Female 05/17/2024 8:26 AM EDT Gender Identity Female 05/17/2024 8:26 AM EDT Sexual Orientation Choose not to disclose 2023 8:26 AM EDT documented as of this encounter Plan of Treatment Upcoming Encounters Date Type Department Care Team (Late st Contact Info) Description 01/16/2027 8:30 AM EDT Office Visit [facility] Vascular & Endovascular Surgery [place] 85 [facility] [address] [place] [phone] Ning Hartman, FIDELINA 85 [facility] [address] [place], [place] [phone] documented as of this encounter Goals Goal Patient Goal Type Associated Problems Recent Progress Patient-Stated? Author OT LTG 1 Occupational Therapy Cookie Carrillo, OT Note: Patient will be I in HEP in 6 weeks, including upgrades 08/16/2024 good HEP carryover, upgrades required. Continue with goal 09/27/2024 good HEP carryover, upgrades provided. GOAL MET Patient will report decrease in pain from 5/10 at rest by at least 3 grades in order to increase participation in ADLs/IADLs in 6 weeks 08/16/2024 2/10 at rest, GOAL MET Patient will decrease Quick Dash score from 67.5 by at least 15 points in order to ease participation in functional tasks in 6 weeks 08/16/2024 QDASH 65.9, minimal progress. Continue with goal 09/27/2024 QDASH 56.8, progress made. GOAL DISCHARGED Patient will increase LUE mechanical laboratory technician/pinch strength by at least 10 lbs / 2lbs in order to increase independence opening containers in 6 weeks 08/16/2024 no progress with mechanical laboratory technician strength, continue with goal 09/27/2024 mechanical laboratory technician increased by 5 lbs. Progress made. GOAL DISCHARGED Patient will increase L digit ROM to complete full composite fist without discomfort in middle finger to increase independence in gripping/carrying tasks in 6 weeks. 08/16/2024 improved ROM with discomfort remaining in middle finger, continue with goal 09/27/2024 great improvements in ROM. GOAL MET documented as of this encounter Visit Diagnoses Not on filedocumented in this encounter Care Teams Cath Lab Technologist Relationship Specialty Start Date End Date John Carter MD 230 [place] [address] PCP - General General Medicine 05/16/24 documented as of this encounter
--- OUTSIDE RECORDS SUMMARY | 2025-01-23 12:39 | XMS_ITS | Encounter Summary ---
Author Organization [facility] Address [address] [place] [address] Care Team Providers Care Survey Statistician Name Role Phone John Carter MD Primary Care Provider [phone] Encounter Details Date Type Department Care Team (Late st Contact Info) Description 05/17/2024 Scanned Document [facility] [address] [phone] Jose Jamil MD [address] [address] Social History Tobacco Use Types Packs/Day Years [...] Description 01/16/2027 8:30 AM EDT Office Visit [facility] Vascular & Endovascular Surgery [place] 85 [facility] 409 [place] [phone] Ning Hartman APRN 85 [facility] [address] [place], [place] [phone] documented as of this encounter Visit Diagnoses Not on filedocumented in this encounter Care Teams Survey Statistician Relationship Specialty Start Date End Date John Carter MD [address] [place] [address] PCP - General General Medicine 05/16/24 documented as of this encounter
--- OUTSIDE RECORDS SUMMARY | 2025-01-23 12:39 | XMS_ITS | Encounter Summary ---
Author Organization [facility] [employer] Address [address] [facility] 7t [place] [address] Care Team Providers Care Saw Offbearer Name Role Phone John Carter MD Primary Care Provider [phone] Sheron Díaz PharmD Unavailable [phone] Encounter Details Date Type Department Care Team (Late Contact Info) Description 07/13/2024 Orders Only [facility] [address] [place] [address] John Carter MD 505 [place] [address] Social History Tobacco Use Types Packs/Day Years Used Date Smoking Tobacco: Former Cigarettes Smokeless Tobacco: Never Comments:Smokes from the age 11 to 35 yo. Quit on Sep 23, 1991. Alcohol Use Standard Drinks/Week Comments Never 0 (1 standard drink = 0.6 oz pur e alcohol) Comments Unknown Sex and Gender Information Value Date Recorded Sex Assigned at Female 08/10/2022 10:17 AM EDT Legal Sex Female 10:17 AM EDT Gender Identity Female 08/10/2022 10:17 AM EDT Sexual Orientation Straight 08/10/2022 10 :17 AM EDT documented as of this encounter Plan of Treatment Upcoming Encounters Date Type Department Care Team (Late Contact Info) Description 02/12/2025 9:30 AM EDT Medication Management [facility] 505 [place] [address] Sheron Díaz, PharmD 230 [place] [address] 02/22/2025 9:15 AM EDT Office Visit [facility] PED[facility] 505 [place] [address] John Carter MD 505 [place] [address] documented as of this encounter Visit Diagnoses Not on filedocumented in this encounter Care Teams Saw Offbearer Relationship Specialty Start Date End Date John Carter MD 505 [place] [address] PCP - General Internal Medicine 10/17/13 Sheron Díaz PharmD [address] [place] [address] Pharmacist Internal Medicine 11/13/24 documented as of this encounter
--- OUTSIDE RECORDS SUMMARY | 2025-01-23 12:39 | XMS_ITS | Encounter Summary ---
Author Organization [email or web address] Address 75 [facility] 7t [place] [address] Care Team Providers Care Straight Knife Cutter Machine Name Role Phone John Carter MD Primary Care Provider [phone] Sheron Díaz PharmD Unavailable [phone] Encounter Details Date Type Department Care Team (Late Contact Info) Description 06/21/2024 Orders Only [facility] 505 [place], [place] [phone] John Carter MD 505 [place] [address] Low vitamin D level (Primary Dx); Neuropathic pain Social History Tobacco Use Types Packs/Day Years [...] Care Team (Late st Contact Info) Description 02/12/2025 9:30 AM EDT Medication Management [facility] 505 [place] [address] Sheron Díaz, PharmD 230 [place] [address] 02/22/2025 9:15 AM EDT Office Visit [facility] MED & PEDS 505 [place], [place] [phone] John Carter MD 505 [place] [address] documented as of this encounter Visit Diagnoses Diagnosis Low vitamin D level- Primary Neuropathic pain documented in this encounter Care Teams Straight Knife Cutter Machine Relationship Specialty Start Date End Date John Carter MD [address] [place] [address] PCP - General Internal Medicine 10/17/13 Sheron Díaz, RaynaD [address] [place] [address] Pharmacist Internal Medicine 11/13/24 documented as of this encounter
--- OUTSIDE RECORDS SUMMARY | 2025-01-23 12:39 | XMS_ITS | Encounter Summary ---
Author Organization [facility] Address [address] [place] [address] Care Team Providers Care C Wpf Developer Name Role Phone John Carter MD Primary Care Provider [phone] Reason for Referral * Outpatient Surgery (Routine) - Closed Specialty Diagnoses / Procedures Referred By Fermin glover Referred To Contact Hand Surgery Diagnoses Right carpal tunnel syndrome Cubital tunnel syndrome on right Jose Jamil MD [address] [place] [address] Referral ID Status Reason Start Date Expiration Date Visits Re quested Visits Authorized [id number] Closed 07/11/2024 07/12/2025 1 1 Question Answer Primary Procedure: 36351 - Cubital Tunnel Additional Procedure(s): 55101 - Carpal tunnel Procedure: RIGHT CARPAL TUNNEL RELEASE/RIGHT CUBITAL TUNNEL RELEASE WITH POSSIBLE ANTERIOR TRANSPOSITION OF THE NERVE Surgery Date 07/13/2024 Laterality: Right Performing Location: [facility] Duration (Mins): 45 Admission: Outpatient Anesthesia: MAC Workers Comp? No Encounter Details Date Type Department Care Team (Late st Contact Info) Description 07/11/2024 OA Surg Order [facility] [address] [phone] Jose Jamil MD [address] [place] [address] Right carpal tunnel syndrome (Primary Dx); Cubital tunnel syndrome on right Social History Tobacco Use Types Packs/Day Years [...] Description 01/16/2027 8:30 AM EDT Office Visit [facility] Vascular & Endovascular Surgery [place] 85 [facility] [address] [place] [address] Ning Hartman, FIDELINA 85 [facility] 409 [place] [address] Scheduled Referrals Name Type Priority Associated Diagnoses Order Schedule RIGHT CARPAL TUNNEL RELEASE/RIGHT CUBITAL TUNNEL RELEASE WITH POSSIBLE ANTERIOR TRANSPOSITION OF THE NERVE Outpatient Referral Routine Right carpal tunnel syndrome Cubital tunnel syndrome on right Ordered: 07/11/2024 documented as of this encounter Goals Goal [...] made. GOAL DISCHARGED Patient will increase LUE office machine mechanic/pinch strength by at least 10 lbs / 2lbs in order to increase independence opening containers in 6 weeks 08/16/2024 no progress with office machine mechanic strength, continue with goal 09/27/2024 office machine mechanic increased by 5 lbs. Progress made. GOAL DISCHARGED Patient will increase L digit ROM to complete full composite fist without discomfort in middle finger to increase independence in gripping/carrying tasks in 6 weeks. 08/16/2024 improved ROM with discomfort remaining in middle finger, continue with goal 09/27/2024 great improvements in ROM. GOAL MET documented as of this encounter Visit Diagnoses Diagnosis Right carpal tunnel syndrome- Primary Carpal tunnel syndrome Cubital tunnel syndrome on right documented in this encounter Care Teams C Wpf Developer Relationship Specialty Start Date End Date John Carter MD [address] [place] [address] PCP - General General Medicine 05/16/24 documented as of this encounter
--- OUTSIDE RECORDS SUMMARY | 2025-01-23 12:39 | XMS_ITS | Encounter Summary ---
Author Organization [facility] [employer] Address [address] [place] [address] 7 [place] [address] Care Team Providers Care Densitometrist Name Role Phone John Carter MD Primary Care Provider [phone] Sheron Díaz PharmD Unavailable [phone] Reason for Visit * Reason Comments Med Refill Encounter Details Date Type Department Care Team (Late st Contact Info) Description 10/06/2023 Refill [facility] [address] [place] [address] John Carter MD 505 [place] [address] Social History Tobacco Use Types Packs/Day Years Used Date Smoking Tobacco: Never Assessed Comments Unknown Sex and Gender Information Value Date Recorded Sex Assigned at Female 08/10/2022 10:17 AM EDT Legal Sex Female 10:17 AM EDT Gender Identity Female 08/10/2022 10:17 AM EDT Sexual Orientation Straight 08/10/2022 10 :17 AM EDT documented as of this encounter Plan of Treatment Upcoming Encounters Date Type Department Care Team (Late Contact Info) Description 02/12/2025 9:30 AM EDT Medication Management [facility] [address] [place], [place] [phone] Sheron Díaz, PharmD 230 [place] [address] 02/22/2025 9:15 AM EDT Office Visit [facility] 505 [place], [place] [phone] John Carter MD 505 [place] [address] documented as of this encounter Visit Diagnoses Not on filedocumented in this encounter Care Teams Densitometrist Relationship Specialty Start Date End Date John Carter MD 505 [place] [address] PCP - General Internal Medicine 10/17/13 Sheron Díaz, RaynaD 230 [place] [address] Pharmacist Internal Medicine 11/13/24 documented as of this encounter
--- OUTSIDE RECORDS SUMMARY | 2025-01-23 12:39 | XMS_ITS | Encounter Summary ---
Author Organization [employer] Address 75 [facility] 7t [place] [address] Care Team Providers Care Clinical Medical Transcriptionist Name Role Phone John Carter MD Primary Care Provider [phone] Sheron Díaz PharmD Unavailable [phone] Encounter Details Date Type Department Care Team (Late st Contact Info) Description 10/18/2024 Telephone [facility] MED & PEDS [address] [place], [place] [phone] John Carter MD 505 [place] [address] Social History Tobacco Use Types Packs/Day Years [...] AM EDT documented as of this encounter Miscellaneous Notes * Telephone Encounter - Darleen Wharton - 10/18/2024 12:40 PM EST Tc from pt requesting to switch [place] order to [place] location on [address]. Risk Adjustment Specialist requested furtherinformation but pt inform nurses should know . Please call pt for further information. documented in this encounter Plan of Treatment Upcoming Encounters Date Type Department Care Team (Late st Contact Info) Description 02/12/2025 9:30 AM EDT Medication Management [facility] 505 [place] [address] Sheron Díaz PharmD 230 [place] [address] 02/22/2025 9:15 AM EDT Office Visit [facility] 505 [place] [address] John Carter MD [address] [place], [place] documented as of this encounter Visit Diagnoses Not on filedocumented in this encounter Care Teams Clinical Medical Transcriptionist Relationship Specialty Start Date End Date John Carter MD [address] [place], [place] PCP - General Internal Medicine 10/17/13 Sheron Díaz PharmD 230 [place] [address] Pharmacist Internal Medicine 11/13/24 documented as of this encounter
--- OUTSIDE RECORDS SUMMARY | 2025-01-23 12:39 | XMS_ITS | Encounter Summary ---
Author Organization [employer] Address [address] [place] [address] 7t [place] [address] Care Team Providers Care Union Steward Name Role Phone John Carter MD Primary Care Provider [phone] Sheron Díaz PharmD Unavailable [phone] Encounter Details Date Type Department Care Team (Late Contact Info) Description 04/12/2024 [facility] Information Management 230 [place], [place] [phone] ProviderErin MD Social History Tobacco Use Types Packs/Day Years [...] Description 02/12/2025 9:30 AM EDT Medication Management [facility] P[facility] [address] [place] [address] Sheron Díaz, PharmD 230 [place] [address] 02/22/2025 9:15 AM EDT Office Visit [facility] [address] [place] [address] John Carter MD 505 [place] [address] documented as of this encounter Procedures Procedure Name Priority Date/Time Associated Diagnosis Comments EMG Routine 03/07/2024 12:58 PM EDT documented in this encounter Results * EMG (03/07/2024 12:58 PM EDT) us Historical Provider NEUROLOGY ORDERABLES Reyna l Result documented in this encounter Visit Diagnoses Not on filedocumented in this encounter Care Teams Union Steward Relationship Specialty Start Date End Date John Carter MD 505 [place] [address] PCP - General Internal Medicine 10/17/13 Sheron Díaz PharmD [address] [place] [address] Pharmacist Internal Medicine 11/13/24 documented as of this encounter
--- OUTSIDE RECORDS SUMMARY | 2025-01-23 12:39 | XMS_ITS | Encounter Summary ---
Author Organization [facility] Address [address] [place] [address] Care Team Providers Care Lumber Salvager Name Role Phone John Carter MD Primary Care Provider [phone] Encounter Details Date Type Department Care Team (Late Contact Info) Description 09/21/[address] [facility] [place] [place] Vascular & Endovascular Surgery [address] [phone] Ning Hartman APRN [address] [place] [phone] Social History Tobacco Use Types Packs/Day Years Used Date Smoking Tobacco: Former Cigarettes Q uit: 09/23/1991 Smokeless Tobacco: Never Sex and Gender Information Value Date Recorded Sex Assigned at Female 05/17/2024 8:26 AM EDT Gender Identity Female 05/17/2024 8:26 AM EDT Sexual Orientation Choose not to disclose 2023 8:26 AM EDT documented as of this encounter Plan of Treatment Upcoming Encounters Date Type Department Care Team (Late st Contact Info) Description 01/16/2027 8:30 AM EDT Office Visit [facility] [place] [place] Vascular & Endovascular Surgery [address] [address] Ning Hartman APRN [address] [phone] documented as of this encounter Goals Goal Patient Goal Type Associated Problems Recent Progress Patient-Stated? Author OT LTG 1 Occupational Therapy No Read, Cookie M, OT Note: Patient will be I in [...] made. GOAL DISCHARGED Patient will increase LUE room service attendant/pinch strength by at least 10 lbs / 2lbs in order to increase independence opening containers in 6 weeks 08/16/2024 no progress with room service attendant strength, continue with goal 09/27/2024 room service attendant increased by 5 lbs. Progress made. GOAL [...] on filedocumented in this encounter Care Teams Lumber Salvager Relationship Specialty Start Date End Date John Carter MD [address] [place] [address] PCP - General General Medicine 05/16/24 documented as of this encounter
--- OUTSIDE RECORDS SUMMARY | 2025-01-23 12:39 | XMS_ITS | Encounter Summary ---
Author Organization [facility] Address [address] [place] [address] Care Team Providers Care Senior Business Architect Name Role Phone John Carter MD Primary Care Provider [phone] Encounter Details Date Type Department Care Team (Late st Contact Info) Description 06/27/2024 Scanned Document [facility] [address] [phone] Jose Jamil MD [address] [address] Social History Tobacco Use Types Packs/Day Years [...] Description 01/16/2027 8:30 AM EDT Office Visit [facility] Vascular & Endovascular Surgery [place] 85 [facility] [address] [place] [phone] Ning Hartman APRN 85 [facility] 409 [place], [place] [phone] documented as of this encounter Visit Diagnoses Not on filedocumented in this encounter Care Teams Senior Business Architect Relationship Specialty Start Date End Date John Carter MD [address] [place] [address] PCP - General General Medicine 05/16/24 documented as of this encounter
--- OUTSIDE RECORDS SUMMARY | 2025-01-23 12:39 | XMS_ITS | Clinical Summary ---
Author Organization [employer] Address [address] [facility] [address]t [place] [address] Care Team Providers Care Director Of Critical Care Name Role Phone John Carter MD Primary Care Provider [phone] Sheron Díaz PharmD Unavailable [phone] Allergies Active Allergy Reactions Criticality Noted Date Comments Lorazepam 10/17/2015 Morphine Hives 07/29/2015 Medications metFORMIN (Glucophage) 1000 MG tabletIndication s:Type 2 diabetes mellitus without complication, without long-term current use of insulin ([facility]) TAKE 1 TABLET BY MOUTH TWICE A DAY WITH BREAKFAST AND DINNER 180 tablet 5 4 Active triamcinolone (Kenalog) 0.1 % creamIndications :Contact dermatitis due to other agent, unspecified contact dermatitis type Apply topically if needed in the morning and at bedtime (pain and swelling). 30 g 2 4 Active gabapentin (Neurontin) 400 MG capsuleIndicatio ns:Neuropathic pain Take 1 capsule (400 mg) by mouth 3 times daily. 90 capsule 11 4 06/21/20 25 Active albuterol 108 (90 Base) MCG/ACT inhaler Inhale 2 puffs every 4 (four) hours if needed for wheezing. 18 g 4 07/13/20 25 Active methocarbamol (Robaxin) 750 MG tablet TAKE 1 TABLET BY MOUTH EVERY 6 HOURS 60 tablet 4 Active Cholecalciferol 50 MCG (2000 UT) tablet dispersibleIndic ations:Low vitamin D level Take 2,000 Units by mouth Once per day. 30 tablet 11 4 Active dapagliflozin (Farxiga) 5 MGIndications:Ty pe 2 diabetes mellitus without complication, without long-term current use of insulin (CMS/HCC) Take 1 tablet (5 mg) by mouth Once per day. 90 tablet 3 Active b complex vitamins capsule Take 1 capsule by mouth Once per day. Active riboflavin (vitamin B2) 100 mg tablet tablet 1-3 times per day Active acetaminophen (Tylenol) 500 MG tablet Active aspirin 325 MG tablet Active lidocaine (Lidoderm) 5 % patchIndications :Cervical spondylosis without myelopathy Apply 1 patch topically Once per day. Remove & discard patch within 12 hours or as directed by MD. 30 patch 5 Active Active Problems Problem Noted Date Diagnosed Date Tubulovillous adenoma 11/29/2024 Breast pain in female 10/24/2024 Assessment & Plan (10/24/2024 11:21 AM EST): Advised pt to complete US order from PCP visit. Discussed with pt insurance required protocols of mammography needing to be completed with US of breast for further evaluation. Hypercholesterolemia 08/03/2024 Chronic pain of both knees 01/31/2019 Primary osteoarthritis of left knee 01/31/2019 Primary osteoarthritis of right knee 01/31/2019 Obstructive sleep apnea syndrome 07/20/2017 Basal cell carcinoma of eyelid 05/26/2016 Diabetes mellitus 06/07/2015 Encounters Date Type Department Care Team Description 01/23/2025 Travel 12/11/[address] [facility] [address] [place] [address] Sheron Díaz PharmD Cervical spondylosis without myelopathy 12/11/2024 Travel 11/30/[address] [facility] [address] [place] [address] Marie Woods, RN Results 11/29/2024 10:45 AM EST Office Visit [facility] [address] [place] [address] John Carter MD Type 2 diabetes mellitus without complication, without long-term current use of insulin (CMS/HCC) (Primary Dx); Hypercholesterolemia; Primary osteoarthritis of left knee; Obstructive sleep apnea syndrome; Generalized body aches; Tubulovillous adenoma 11/29/[address] [facility] [address] [place] [address] John Carter MD 11/29/2024 Travel 11/16/2024 Patient Outreach [facility] [address] [place] [address] Tenisha Burnham Pre-visit Planning (Pre visit planning LVM ) 11/13/[address] [facility] [address] [place] [address] Sheron Díaz, Jennifer 11/13/2024 Travel 11/01/2024 Orders [address] [facility] [address] [place] [address] John Carter MD Type 2 diabetes mellitus without complication, without long-term current use of insulin (CMS/[facility]) (Primary Dx) 11/01/2024 Telephone [facility] [address] [place] [address] John Carter MD from Last 3 Months Immunizations Name Administration Dates Next Due Tdap 07/28/2017 Social History Tobacco Use Types Packs/Day Years Used Date Smoking Tobacco: Former Cigarettes Smokeless Tobacco: Never Comments:Smokes from the age 11 to 35 yo. Quit on Sep 23, 1991. Alcohol Use Standard Drinks/Week Comments Never 0 (1 standard drink = 0.6 oz pur e alcohol) Depression Answer Date Recorded Patient Health Questionnaire-2 Score 3 11/29/2024 Comments Unknown Sex and Gender Information Value Date Recorded Sex Assigned at Female 08/10/2022 10:17 AM EDT Legal Sex Female 10:17 AM EDT Gender Identity Female 08/10/2022 10:17 AM EDT Sexual Orientation Straight 08/10/2022 10 :17 AM EDT Last Filed Vital Signs Vital Sign Reading Time Taken Comments Blood Pressure 143/85 11/13/2024 10:56 AM EST home BP reading, wrist cuff Pulse 93 11/29/2024 10:53 AM EST Temperature 36.6 ??C (97.8 ??F) 11/29/2024 1 0:53 AM EST Respiratory Rate 20 11/29/2024 10:5 3 AM EST Oxygen Saturation 95% 11/29/2024 10: 53 AM EST Inhaled Oxygen Concentration - - Weight 95.9 kg (211 lb 6 oz) 11/29/2024 10:53 AM EST Height 176.8 cm (5' 9.59 ) 11/29/2024 1 0:53 AM EST no shoes on Body Mass Index 30.69 11/29/2024 10:53 AM EST Plan of Treatment Upcoming Encounters Date Type Department Care Team (Late st Contact Info) Description 02/12/2025 9:30 AM EDT Medication Management [facility] [address] [place], [place] [phone] Sheron Díaz, PharmD [address] [place] [address] 02/22/2025 9:15 AM EDT Office Visit [facility] [address] [place], [place] [phone] John Carter MD [address] [place], [place] [phone] Health Maintenance Due Date Last Done Comments CT Colonography 1954 Colonoscopy 1954 FIT DNA/Cologuard 1954 FIT 1954 FOBT 1954 SDOH Screening 1954 Sigmoidoscopy 1954 Derm Melanoma Skin Check 05/11/1955 Eye Exam 1964 Alcohol/Substance Use Screening 1966 Hepatitis A Vaccines (1 of 2 - Risk 2-dose series) 1973 Hepatitis B Vaccines (1 of 3 - Risk 3-dose series) 2014 Mammogram 06/11/2023 06/11/2021 Diabetes: Hemoglobin A1C 02/10/2025 025, 06/23/2024, 04/12/2024, Additional history exists Influenza Vaccine (#1) 2025 Postp oned from 06/11/2024 (Patient Refused) Colorectal Cancer Screening 04/12/2025 Postponed from 1954 (Patient Refused) Diabetes: Foot Exam 04/12/2025 04/12/2024, 04/12/2024, 04/12/2024, Additional history exists Pneumococcal Vaccine: 50+ Years (1 of 2 - PCV) 04/12/2025 Postponed from 1973 (Patient Refused) RSV Patients and Patients Aged 60 years or older (1 - Risk 60-74 years 1-dose series) 04/12/2025 Postponed from 2014 (Patient Refused) Zoster Vaccines (1 of 2) 04/12/2025 Pos tponed from 2004 (Patient Refused) Lipid Panel 06/23/2025 06/23/2024, 08/0 01/2021, 09/18/2020 COVID-19 Vaccine (2 - season) 2025 01/28/2021 Postponed from 06/11/2024 (Patient Refused) Diabetes: Urine Protein Screening 08/04/2025 08/04/2024, 05/14/2021, 09/18/2020 Tobacco Screening 10/24/2025 10/24/2024 Depression Screening 11/29/2025 11/29/2024, 11/29/19 DTaP/Tdap/Td Vaccines (2 - Td or Tdap) 07/28/2027 07/28/2017 Hepatitis C Screening Completed 08/04/2024 HIB Vaccines Aged Out No longer eligi ble based on patient's age to complete this topic HPV Vaccines Aged Out No longer eligi ble based on patient's age to complete this topic IPV Vaccines Aged Out No longer eligi ble based on patient's age to complete this topic Meningococcal Vaccine Aged Out No dorothy javon eligible based on patient's age to complete this topic RSV under 20 months Aged Out No longe r eligible based on patient's age to complete this topic Rotavirus Vaccines Aged Out No longer eligible based on patient's age to complete this topic Procedures Procedure Name Priority Date/Time Associated Diagnosis Comments POCT GLYCATED HEMOGLOBIN, TOTAL Routine 11/13/2024 10:55 AM EST Type 2 diabetes mellitus without complication, without long-term current use of insulin ([facility]) HEPATITIS C AB W/REFL TO HCV RNA, QN, PCR Routine 08/04/2024 1:38 PM EDT Transaminitis ALBUMIN, RANDOM URINE W/CREATININE Routine 08/04/2024 1:36 PM EDT Type 2 diabetes mellitus without complication, without long-term current use of insulin (CMS/HCC) LIPID PANEL, STANDARD Routine 06/23/2024 10:05 AM EDT Type 2 diabetes mellitus without complication, with long-term current use of insulin (CMS/HCC) MAMMOGRAM GENERIC Routine 06/11/2021 8:4 5 AM EDT from Last 3 Months or Most Recently Relevant to Health Maintenance Results * (ABNORMAL) POCT A1C (11/13/2024 10:55 AM EST) Hemoglobin A1C 10.4(A) 4.0 - 6.0 % QC Media Lot # [id number] Lot# Expiration Date Blood 11/13/2024 10:5 5 AM EST us John Carter MD POINT OF CARE TEST ENTER/ED IT ORDERABLES Final Result * Hepatitis C Antibody with Reflex to HCV, RNA, Quantitative, Real-Time PCR (08/04/2024 1:38 PM EDT) Hepatitis C Antibody Nonreactive Nonreactive [facility] Comment:Antibodies to HCV no t detected; does not exclude early acuteHCV infection. Blood Venous blood specimen / Unknown 08/04/2024 1:38 PM EDT 08/04/2024 2:16 PM EDT us John Carter MD LAB BLOOD ORDERABLES Final Result [facility] [address] [place] [phone] * Albumin, Random Urine W/Creatinine (08/04/2024 1:36 PM EDT) Creatinine, Urine 74.86 mg/dL [facility] Microalbumin Urine 16.0 mg/L [facility] Microalbum Creatinine Ratio Ur 21.3 <30 ug/mg cr [facility] Comment:Albumin/Creatinine R at Reference Ranges: Normal: < 30 ug/mg creatinine Microalbuminuria: 30 - 300 ug/mg creatinineClinical Albuminuria: > 300 ug/mg creatinine Urine (Urine, Random) 08/04/2024 1:36 PM EDT 08/04/2024 2:10 PM EDT us John Carter MD LAB URINE ORDERABLES Final Result [facility] [address] [place] [address] [phone] * (ABNORMAL) Lipid Panel, Standard (06/23/2024 10:05 AM EDT) Triglycerides 121 <150 mg/dL [facility] Comment:Desirable Triglyceri de: less than 150 mg/dLBorderline High Triglyceride 150-199 mg/dLHigh Triglyceride: 200-499 mg/dLVery High Triglyceride: greater than or equal to 5OO mg/dL Cholesterol 200(H) <200 mg/dL [facility] Comment:Desirable Cholestero l: less than 200 mg/dLBorderline High Cholesterol: 200-239 mg/dLHigh Cholesterol: greater than 239 mg/dL LDL Cholesterol Calculated 133(H) <100 mg/dL [facility] Comment:Desirable LDL: less than 100 mg/dLNear Optimal/Above Optimal LDL: 110- 129 mg/dLBorderline High LDL: 130-159 mg/dLHigh LDL: 160-189 mg/dLVery High LDL: greater than or equal to 190 mg/dL HDL Cholesterol 43 >40 mg/dL [facility] Comment:Desirable HDL: great er than 40 mg/dL Note: This HDL assay may give artificially low results in patients with liver disease. Blood Venous blood specimen / Unknown 06/23/2024 10:05 AM EDT 06/23/2024 2:52 PM EDT us Mae Juarez MD LAB BLOOD ORDERABLES Final Resul t [facility] [address] [place] [address] [phone] * Mammography Report 1 (06/11/2021 8:45 AM EDT) Anatomical Region Laterality Modality Breast Bilateral Mammography 06/11/2021 8:45 AM EDT Narrative 06/11/2021 12:00 PM EDT Refer to the Notes tab for result details [facility] Procedure: Mammography Report 1 Procedure Note Provider, MD Erin - 01/03/2023 Refer to the Notes tab for result details [facility] Procedure: Mammography Report 1 John Carter MD IMG BI PROCEDURES Final Res ult from Last 3 Months or Most Recently Relevant to Health Maintenance Insurance [facility] MEDICARE REPLACEMENT Care Teams Director Of Critical Care Relationship Specialty Start Date End Date John Carter MD [address] [place] [address] PCP - General Internal Medicine 10/17/13 Sheron Díaz, RaynaD [address] [place] [address] Pharmacist Internal Medicine 11/13/24
--- OUTSIDE RECORDS SUMMARY | 2025-01-23 12:39 | XMS_ITS | Encounter Summary ---
Author Organization [facility] Address [address] [place] [address] Care Team Providers Care Head Baggage Porter Name Role Phone John Carter MD Primary Care Provider [phone] Encounter Details Date Type Department Care Team (Late st Contact Info) Description 06/27/2024 Scanned Document [facility] [address] [phone] Jose Jamil MD [address] [address] Social History Tobacco Use Types Packs/Day Years [...] Description 01/16/2027 8:30 AM EDT Office Visit [facility] [place] [address] [facility] [address] [place] [phone] Ning Hartman APRN 85 [facility] [address] [place], [place] [phone] documented as of this encounter Visit Diagnoses Not on filedocumented in this encounter Care Teams Head Baggage Porter Relationship Specialty Start Date End Date John Carter MD [address] [place] [address] PCP - General General Medicine 05/16/24 documented as of this encounter
--- OUTSIDE RECORDS SUMMARY | 2025-01-23 12:39 | XMS_ITS | Encounter Summary ---
Author Organization [employer] Address 75 [facility] 7 [place] [address] Care Team Providers Care Automotive Shop Foreman Name Role Phone John Carter MD Primary Care Provider [phone] Sheron Díaz PharmD Unavailable [phone] Reason for Visit * Reason Onset Date Comments Referral 12/20/2023 Encounter Details Date Type Department Care Team (Late st Contact Info) Description 12/20/2023 Telephone [facility] [address] [place] [address] John Carter MD [address] [place] [address] Referral Social History Tobacco Use Types Packs/Day Years Used Date Smoking Tobacco: Never Assessed Comments Unknown Sex and Gender Information Value Date Recorded Sex Assigned at Female 08/10/2022 10:17 AM EDT Legal Sex Female 10:17 AM EDT Gender Identity Female 08/10/2022 10:17 AM EDT Sexual Orientation Straight 08/10/2022 10 :17 AM EDT documented as of this encounter Miscellaneous Notes * Telephone Encounter - Lucio Benjamin - 12/20/2023 3:00 PM EDT TC from pt requesting new referral: DATE: N/A TIME: N/A Address: [address] [place] [address] Visits: N/A Facility Name: [facility] Type of Specialist: Hand Specialist DX: Hand injury Phone #: [phone] Fax #: [phone] documented in this encounter Plan of Treatment Upcoming Encounters Date Type Department Care Team (Late st Contact Info) Description 02/12/2025 9:30 AM EDT Medication Management [facility] [address] [place] [address] Sheron Díaz PharmD [address] [place] [address] 02/22/2025 9:15 AM EDT Office Visit [facility] [address] [place] [address] John Carter MD [address] [place], [place] documented as of this encounter Visit Diagnoses Not on filedocumented in this encounter Care Teams Automotive Shop Foreman Relationship Specialty Start Date End Date John Carter MD [address] [place], [place] PCP - General Internal Medicine 10/17/13 Sheron Díaz PharmD [address] [place] [address] Pharmacist Internal Medicine 11/13/24 documented as of this encounter
--- OUTSIDE RECORDS SUMMARY | 2025-01-23 12:39 | XMS_ITS | Encounter Summary ---
Author Organization [facility] Address [address] [place] [address] Care Team Providers Care Neurosurgeon Name Role Phone John Cartre MD Primary Care Provider [phone] Encounter Details Date Type Department Care Team (Late st Contact Info) Description 06/07/2024 Scanned Document [facility] [address] [place] [address] Jose Jamil MD 31 [facility] [address] [place] [address] Social History Tobacco Use Types Packs/Day Years [...] Description 01/16/2027 8:30 AM EDT Office Visit [facility] [place] [address] [facility] [address] [place] [phone] Ning Hartman APRN 85 [facility] [address] [place], [place] [phone] documented as of this encounter Visit Diagnoses Not on filedocumented in this encounter Care Teams Neurosurgeon Relationship Specialty Start Date End Date John Carter MD [address] [place] [address] PCP - General General Medicine 05/16/24 documented as of this encounter
--- OUTSIDE RECORDS SUMMARY | 2025-01-23 12:39 | XMS_ITS | Encounter Summary ---
Author Organization [employer] Address [address] [place] [address] 7 [place] [address] Care Team Providers Care Product Marketing Executive Name Role Phone John Carter MD Primary Care Provider [phone] Sheron Díaz PharmD Unavailable [phone] Reason for Referral * Consultation (Routine) - Authorized Specialty Diagnoses / Procedures Referred By Contnathalie t Referred To Contact Pharmacy Diagnoses Type 2 diabetes mellitus without complication, without long-term current use of insulin (CMS/HCC) John Carter MD [address] [place] [address] Phone: tel: fax: Referral ID Status Reason Start Date Expiration Date Visits Requested Visits Authorized [id number] Authorized Consult and Treat 11/01/2024 11/01/2025 6 6 Encounter Details Date Type Department Care Team (Late st Contact Info) Description 11/01/2024 Orders Only [facility] [address] [place] [address] John Carter MD [address] [place] [address] Type 2 diabetes mellitus without complication, without long-term current use of insulin (CMS/HCC) (Primary Dx) Social History Tobacco Use Types Packs/Day Years [...] 02/12/2025 9:30 AM EDT Medication Management [facility] [address] [place] [address] Sheron Díaz PharmD [address] [place] [address] 02/22/2025 9:15 AM EDT Office Visit [facility] [address] [place] [address] John Carter MD [address] [place] [address] Scheduled Referrals Name Type Priority Associated Diagnoses Orde r Schedule Referral to Pharmacy CDTM Outpatient Referral Routine Type 2 diabetes mellitus without complication, without long-term current use of insulin (CMS/HCC) Ordered: 11/01/2024 documented as of this encounter Visit Diagnoses Diagnosis Type 2 diabetes mellitus without complication, without long-term current use of insulin (CMS/HCC)- Primary documented in this encounter Care Teams Product Marketing Executive Relationship Specialty Start Date End Date John Carter MD [address] [place] [address] PCP - General Internal Medicine 10/17/13 Sheron Díaz PharmD [address] [place] [address] Pharmacist Internal Medicine 11/13/24 documented as of this encounter
--- OUTSIDE RECORDS SUMMARY | 2025-01-23 12:39 | XMS_ITS | Encounter Summary ---
Author Organization [facility] [employer] Address 75 [facility] 7t [place] [address] Care Team Providers Care Salesperson Florist Supplies Name Role Phone John Carter MD Primary Care Provider Sheron Díaz PharmD Unavailable [phone] Encounter Details Date Type Department Care Team (Late Contact Info) Description 04/26/2024 Orders Only [facility] [address] [place], [place] [phone] John Carter MD [address] [place] [address] Low vitamin D level (Primary Dx) Social History Tobacco Use Types [...] 9:30 AM EDT Medication Management [facility] [address] [place], [place] [phone] hSeron Díaz, PharmD [address] [place] [address] 02/22/2025 9:15 AM EDT Office Visit [facility] [address] [place], [place] [phone] John Carter MD [address] [place] [address] documented as of this encounter Visit Diagnoses Diagnosis Low vitamin D level- Primary documented in this encounter Care Teams Salesperson Florist Supplies Relationship Specialty Start Date End Date John Carter MD [address] [place] [address] PCP - General Internal Medicine 10/17/13 Sheron íDaz PharmD [address] [place] [address] Pharmacist Internal Medicine 11/13/24 documented as of this encounter
--- OUTSIDE RECORDS SUMMARY | 2025-01-23 12:39 | XMS_ITS | Encounter Summary ---
Author Organization [employer] Address [address] [place] [address] 7[address] [place] [address] Care Team Providers Care Lining Marker Name Role Phone John Carter MD Primary Care Provider [phone] Sheron Díaz PharmD Unavailable [phone] Reason for Referral * Consultation (Routine) - Authorized Specialty Diagnoses / Procedures Referred By Fermin glover Referred To Contact Gastroenterology Diagnoses Hepatic cyst Hepatomegaly John Carter MD [address] [place] [address] Phone: tel: fax: Lesli Del Cid MD [address] [place] [address] Phone: tel: fax: Referral ID Status Reason Start Date Expiration Date Visits Requested Visits Authorized [id number] Authorized Specialty Services Required 4 08/28/2025 1 1 Encounter Details Date Type Department Care Team (Late st Contact Info) Description 08/28/2024 Orders Only [facility] [address] [place], [place] [phone] John Carter MD [address] [place] [phone] Hepatic cyst (Primary Dx); Hepatomegaly Social History Tobacco Use Types Packs/Day Years [...] 02/12/2025 9:30 AM EDT Medication Management [facility] [address] [place] [address] Sheron Díaz PharmD [address] [place] [address] 02/22/2025 9:15 AM EDT Office Visit [facility] [address] [place] [address] John Carter MD [address] [place] [address] Scheduled Referrals Name Type Priority Associated Diagnoses Order Schedule Referral to Gastroenterology Outpatient Referral Routine Hepatic cyst Hepatomegaly Expected: 08/28/2024 (Approximate), Expires: 08/28/2025 documented as of this encounter Visit Diagnoses Diagnosis Hepatic cyst- Primary Other specified disorders of liver Hepatomegaly documented in this encounter Care Teams Lining Marker Relationship Specialty Start Date End Date John Carter MD [address] [place] [address] PCP - General Internal Medicine 10/17/13 Sheron Díaz PharmD [address] [place] [address] Pharmacist Internal Medicine 11/13/24 documented as of this encounter
--- OUTSIDE RECORDS SUMMARY | 2025-01-23 12:39 | XMS_ITS | Encounter Summary ---
Author Organization [employer] Address 75 [facility] [address] [place] [address] Care Team Providers Care Medical Instrument Technician Name Role Phone John Carter MD Primary Care Provider [phone] Sheron Díaz PharmD Unavailable [phone] Encounter Details Date Type Department Care Team (Latest Contact Info) Description 01/23/2025 Travel Social History Tobacco Use Types Packs/Day Years [...] Description 02/12/2025 9:30 AM EDT Medication Management [facility] [address] [place] [address] Sheron Díaz PharmD [address] [place] [address] 02/22/2025 9:15 AM EDT Office Visit [facility] [address] [place] [address] John Carter MD [address] [place] [address] documented as of this encounter Visit Diagnoses Not on filedocumented in this encounter Care Teams Medical Instrument Technician Relationship Specialty Start Date End Date John Carter MD [address] [place] [address] PCP - General Internal Medicine 10/17/13 Sherno Díaz PharmD [address] [place] [address] Pharmacist Internal Medicine 11/13/24 documented as of this encounter
--- OUTSIDE RECORDS SUMMARY | 2025-01-23 12:40 | XMS_ITS | Encounter Summary ---
Author Organization [facility] [employer] Address [address] [place] [address] [address] [address] Care Team Providers Care It Infrastructure Architect Name Role Phone John Carter MD Primary Care Provider [phone]- [phone] Sheron Díaz PharmD Unavailable [phone] Reason for Visit * Reason Comments Med Change Request Encounter Details Date Type Department Care Team ([facility] Contact Info) Description 02/16/2023 Refill [facility] MEDICINE [address] [place] [address] John Carter MD [address] [place] [address] Cervical spondylosis without myelopathy Social History Tobacco Use Types Packs/Day Years [...] Description 02/12/2025 9:30 AM EDT Medication Management [facility] [address] [place] [address] Sheron Díaz, PharmD [address] [place] [address] 02/22/2025 9:15 AM EDT Office Visit [facility] [address] [place] [address] John Carter MD [address] [place] [address] documented as of this encounter Visit Diagnoses Diagnosis Cervical spondylosis without myelopathy documented in this encounter Care Teams It Infrastructure Architect Relationship Specialty Start Date End Date John Carter MD [address] [place] [address] PCP - General Internal Medicine 10/17/13 Sheron Díaz PharmD [address] [place] [address] Pharmacist Internal Medicine 11/13/24 documented as of this encounter
--- OUTSIDE RECORDS SUMMARY | 2025-01-23 12:40 | XMS_ITS | Encounter Summary ---
Author Organization [facility] [employer] Address [address] [place] [address] [address] [address] Care Team Providers Care Health Program Specialist Name Role Phone John Carter MD Primary Care Provider [phone]- [phone] Sheron Díaz PharmD Unavailable [phone] Reason for Visit * Reason Comments Med Change Request Encounter Details Date Type Department Care Team ([facility] Contact Info) Description 02/12/2023 Refill [facility] MEDICINE [address] [place] [address] John Carter MD [address] [place] [address] Cervical spondylosis without myelopathy Social History Tobacco [...] Description 02/12/2025 9:30 AM EDT Medication Management [facility]S [address] [place] [address] Sheron Díaz, PharmD [address] [place] [address] 02/22/2025 9:15 AM EDT Office Visit [facility]EDS [address] [place] [address] John Carter MD [address] [place] [address] documented as of this encounter Visit Diagnoses Diagnosis Cervical spondylosis without myelopathy documented in this encounter Care Teams Health Program Specialist Relationship Specialty Start Date End Date John Carter MD [address] [place] [address] PCP - General Internal Medicine 10/17/13 Sheron Díaz PharmD [address] [place] [address] Pharmacist Internal Medicine 11/13/24 documented as of this encounter
--- OUTSIDE RECORDS SUMMARY | 2025-01-23 12:40 | XMS_ITS | Clinical Summary ---
Author Organization [facility] Address [address] [place] [address] Care Team Providers Care Core Finisher Name Role Phone John Carter MD Primary Care Provider [phone] Allergies Active Allergy Reactions Criticality Noted Date Comments Morphine Rash/Dermatitis Low 07/12/2024 Medications Medication Sig Dispensed Refills Start Date End Date Status HYDROcodone-acetami nophen (NORCO) 5-325 mg per tabletIndications:C arpal tunnel syndrome on left,Cubital tunnel syndrome on left Take 1 tablet by mouth 4 times daily (every 6 hours) as needed for severe pain. Max Daily Amount: 4 tablets 20 tablet 06/27/2024 Active traMADol (ULTRAM) 50 MG tabletIndications:R ight carpal tunnel syndrome Take 1 tablet (50 mg total) by mouth 4 times daily (every 6 hours) as needed for severe pain. 10 tablet 07/10/2024 Active methocarbamol (ROBAXIN) 750 MG tablet Take 1 tablet (750 mg total) by mouth every 6 (six) hours. 07/17/2024 Active metFORMIN (GLUCOPHAGE) 1000 MG tablet Take 1 tablet (1,000 mg total) by mouth 2 (two) times a day with breakfast and dinner. Active gabapentin (NEURONTIN) 400 MG capsule Take 1 capsule (400 mg total) by mouth 3 (three) times a day. Active D3 50 MCG (2000 UT) Chew Tab Chew 1 tablet. Chew and swallow tablet. 08/03/2024 Active albuterol (PROVENTIL HFA; VENTOLIN HFA) 108 (90 Base) MCG/ACT inhaler Inhale 2 puffs every 4 (four) hours as needed. 07/13/2024 07/13/2025 Active aspirin (GWEN ASPIRIN) 325 MG tablet Active Active Problems No known active problems Encounters Date Type Department Care Team Description 12/21/2024 8:30 AM EDT Office Visit [facility] [address] [address] Vaishali Hartman APRN Carotid stenosis, asymptomatic, bilateral (Primary Dx) 12/21/2024 8:00 AM EDT Ancillary Procedure [facility] [address] [address] Vaishali Hartman APRN Carotid stenosis, asymptomatic, bilateral 12/21/2024 Travel 12/20/2024 2:30 PM EDT Office Visit [facility] [address] [address] Jose Jamil MD Trigger finger of right thumb (Primary Dx); Carpal tunnel syndrome on right from Last 3 Months Social History Tobacco Use Types Packs/Day Years Used Date Smoking Tobacco: Former Cigarettes Q uit: 09/23/1991 Smokeless Tobacco: Never Tobacco Cessation:Counseling Given: Not Answered Sex and Gender Information Value Date Recorded Sex Assigned at Female 05/17/2024 8:26 AM EDT Gender Identity Female 05/17/2024 8:26 AM EDT Sexual Orientation Choose not to disclose 2023 8:26 AM EDT Last Filed Vital Signs Vital Sign Reading Time Taken Comments Blood Pressure 140/60 12/21/2024 8:16 AM EDT L 1 40/60 Pulse 89 12/21/2024 8:16 AM EDT Temperature - - Respiratory Rate - - Oxygen Saturation 97% 12/21/2024 8:16 AM EDT Inhaled Oxygen Concentration - - Weight 97.5 kg (215 lb) 12/21/2024 8:16 AM EDT Height 179.1 cm (5' 10.5 ) 12/21/2024 8:16 AM ED T Body Mass Index 30.41 12/21/2024 8:16 AM EDT Plan of Treatment Upcoming Encounters Date Type Department Care Team (Late st Contact Info) Description 01/16/2027 8:30 AM EDT Office Visit [facility] [address] [address] Vaishali Hartman, METALLURGICAL ENGINEERING TEACHER 85 [facility] [address] [place] [address] Health Maintenance Due Date Last Done Comments Hepatitis C Virus Screening 1954 DTaP/Tdap/Td Vaccines (1 - Tdap) 1973 Mammogram 1994 Colonoscopy 1999 Pneumococcal Vaccines 50+ (1 of 1 - PCV) 2004 Zoster (Shingles) Vaccine (1 of 2) 2004 DXA Bone Density (Females,Ag es 65 and older) 2019 Influenza Vaccine 05/11/2024 COVID-19 Vaccine ( - 2023-2 5 season) 2024 RSV Vaccine 60 years and old er and Patients (1 - 1-dose 75+ series) 2029 Hepatitis B Vaccines Aged Out No long er eligible based on patient's age to complete this topic Goals Goal Patient Goal Type Associated Problems Recent Progress Patient-Stated? Author OT LTG 1 Occupational Therapy No Cookie Jacome, OT Note: Patient will be I in [...] made. GOAL DISCHARGED Patient will increase LUE cost reduction engineer/pinch strength by at least 10 lbs / 2lbs in order to increase independence opening containers in 6 weeks 08/16/2024 no progress with cost reduction engineer strength, continue with goal 09/27/2024 cost reduction engineer increased by 5 lbs. Progress made. GOAL DISCHARGED Patient will increase L digit ROM to complete full composite fist without discomfort in middle finger to increase independence in gripping/carrying tasks in 6 weeks. 08/16/2024 improved ROM with discomfort remaining in middle finger, continue with goal 09/27/2024 great improvements in ROM. GOAL MET Procedures Procedure Name Priority Date/Time Associated Diagnosis Comments VAS EXTRACRANIAL CAROTID ARTERY DUPLEX-BILATERAL Routine 12/21/2024 8:17 AM EDT Carotid stenosis, asymptomatic, bilateral from Last 3 Months Results * VAS EXTRACRANIAL CAROTID ARTERY DUPLEX-BILATERAL (12/21/2024 8:17 AM EDT) Anatomical Region Laterality Modality Ultrasound 12/21/2024 8:00 AM EDT Narrative 12/21/2024 8:29 AM EDT Table formatting from the original result was not included. ?? Department: [facility] Vascular Lab ([place]) Patient: [id number] (ANDREW BRANDON) ?? Patient Location: [facility] CPT Code: 78973 ICD-9: ?? Referring Physician: VAISHALI HARTMAN APRN Impression Right carotid duplex ultrasound demonstrates minimal plaque in the extracranial internal carotid artery without significantly elevated velocities. Findings are consistent with <50% diameter reduction of the vessel. The Doppler waveform of the subclavian artery is within normal limits, and findings are not indicative of subclavian artery disease. The vertebral artery is patent with antegrade flow. Left carotid duplex ultrasound demonstrates mild plaque in the extracranial internal carotid artery without significantly elevated velocities. ??Findings are consistent with <50% diameter reduction of the vessel. The Doppler waveform of the subclavian artery is within normal limits, and findings are not indicative of subclavian artery disease. The vertebral artery is patent with antegrade flow. Indication: ? Carotid Stenosis or Occlusion, Asymptomatic [I65.29]. Clinical: 69 year old female who presents with known carotid stenosis. ?? Findings: ?? Right ??PSV (cm/s) ??EDV (cm/s) ??Plaque ??Impression ??Plaque Structure ??Plaque Surface ??Flow Prox CCA ??135 ? Dist CCA ??84 ? Prox ICA ??62 ??14 ??minimal ??1-49% ??Heterogenous ??irregular ?? Dist ICA ??73 ??20 ? Ext Carotid ??112 ? Vertebral Artery ??41 ?Antegrade Subclavian ??86 ?Normal ? Left ??PSV (cm/s) ??EDV (cm/s) ??Plaque ??Impression ??Plaque Structure ??Plaque Surface ??Flow Prox CCA ??128 ? Dist CCA ??106 ? Prox ICA ??75 ??19 ??mild ??1-49% ??Heterogenous ??irregular ?? Dist ICA ??48 ??14 ? Ext Carotid ??127 ? Vertebral Artery ??57 ?Antegrade Subclavian ??102 ?Normal ? Electronically Signed by: Cuong Harmon MD, RPVI on 2024-12-21 08:29:14 AM End of Report Procedure Note Cuong Harmon MD - 12/21/2024 Department: [facility] Vascular Lab ([place]) Patient: [id number] (BRANDON MORALES) Patient Location: [facility] CPT Code: 74796 ICD-9: Referring Physician: VAISHALI HARTMAN METALLURGICAL ENGINEERING TEACHER Impression Right carotid duplex ultrasound demonstrates minimal plaque in theextracranial internal carotid artery without significantly elevatedvelocities. Findings are consistent with <50% diameter reduction of thevessel. The Doppler waveform of the subclavian artery is within normallimits, and findings are not indicative of subclavian artery disease. Thevertebral artery is patent with antegrade flow. Left carotid duplex ultrasound demonstrates mild plaque in theextracranial internal carotid artery without significantly elevatedvelocities. Findings are consistent with <50% diameter reduction of thevessel. The Doppler waveform of the subclavian artery is within normallimits, and findings are not indicative of subclavian artery disease. Thevertebral artery is patent with antegrade flow. Indication: Carotid Stenosis or Occlusion, Asymptomatic [I65.29]. Clinical: 69 year old female who presents with known carotid stenosis. Findings: Right PSV (cm/s) EDV (cm/s) Plaque Impression Plaque StructurePlaque Surface Flow Prox CCA 135 Dist CCA 84 Prox ICA 62 14 minimal 1-49% Heterogenous irregular Dist ICA 73 20 Ext Carotid 112 Vertebral Artery 41 Antegrade Subclavian 86 Normal Left PSV (cm/s) EDV (cm/s) Plaque Impression Plaque Structure PlaqueSurface Flow Prox CCA 128 Dist CCA 106 Prox ICA 75 19 mild 1-49% Heterogenous irregular Dist ICA 48 14 Ext Carotid 127 Vertebral Artery 57 Antegrade Subclavian 102 Normal Electronically Signed by: Cuong Harmon MD, RPVI on :29:14 AM End of Report Vaishali Hartman APRN VASCULAR LAB ORDERAB LES from Last 3 Months Care Teams Core Finisher Relationship Specialty Start Date End Date John Carter MD [address] [place] [address] PCP - General General Medicine 05/16/24
--- OUTSIDE RECORDS SUMMARY | 2025-01-23 12:40 | XMS_ITS | Encounter Summary ---
Author Organization [facility] [employer] Address [address] [place] [address] [address] [place] [address] Care Team Providers Care Ediphone Operator Name Role Phone John Carter MD Primary Care Provider [phone]- [phone] Sheron Díaz PharmD Unavailable [phone] Encounter Details Date Type Department Care Team (Late st Contact Info) Description 10/29/2022 Orders Only [facility] PEDS [address] [place] [address] Meri Mckeon LPN Social History Tobacco Use Types Packs/Day Years [...] [facility] [address] [place] [address] Sheron Díaz, PharmD [address] [place] [address] 02/22/2025 9:15 AM EDT Office Visit [facility] [address] [place] [address] John Carter MD [address] [place] [address] documented as of this encounter Visit Diagnoses Not on filedocumented in this encounter Care Teams Ediphone Operator Relationship Specialty Start Date End Date John Carter MD [address] [place] [address] PCP - General Internal Medicine 10/17/13 Sheron Díaz PharmD [address] [place] [address] Pharmacist Internal Medicine 11/13/24 documented as of this encounter
--- OUTSIDE RECORDS SUMMARY | 2025-01-23 12:40 | XMS_ITS | Encounter Summary ---
Author Organization [facility] [employer] Address [address] [place] [address] [address] [address] Care Team Providers Care Parliamentary Counsel Name Role Phone John Carter MD Primary Care Provider [phone]- [phone] Sheron Díaz PharmD Unavailable [phone] Reason for Visit * Reason Comments Med Change Request Encounter Details Date Type Department Care Team ([facility] Contact Info) Description 02/19/2023 Refill [facility] MEDICINE [address] [place] [address] John Carter MD [address] [place] [address] Cervical spondylosis without myelopathy Social History Tobacco [...] Description 02/12/2025 9:30 AM EDT Medication Management [facility] MED & PEDS [address] [place] [address] Sheron Díaz, PharmD [address] [place] [address] 02/22/2025 9:15 AM EDT Office Visit [facility] MED & PEDS [address] [place] [address] John Carter MD [address] [place] [address] documented as of this encounter Visit Diagnoses Diagnosis Cervical spondylosis without myelopathy documented in this encounter Care Teams Parliamentary Counsel Relationship Specialty Start Date End Date John Carter MD [address] [place] [address] PCP - General Internal Medicine 10/17/13 Sheron Díaz PharmD [address] [place] [address] Pharmacist Internal Medicine 11/13/24 documented as of this encounter
--- OUTSIDE RECORDS SUMMARY | 2025-01-23 12:40 | XMS_ITS | Clinical Summary ---
Author Organization [facility] Address [address] [place] [address] Care Team Providers Care Tread Cutter Name Role Phone John Carter MD Primary Care Provider [phone] Allergies Active Allergy Reactions Criticality Noted Date Comments Morphine 05/28/2017 Medications Medication Sig Dispensed Refills Start Date End Date Status gabapentin (NEURONTIN) 300 MG capsule Take 300 mg by mouth 3 (three) times a day. 5 05/07/2017 Active metFORMIN (GLUCOPHAGE) tablet 500 mg TAKE 1 TABLET BY MOUTH TWICE A DAY 5 05/05/2017 Active ranitidine (ZANTAC) 150 MG tablet TAKE 1 TABLET BY MOUTH 1-2 TIMES A DAY 30 MIN PRIOR TO BREAKFAST AND SUPPER NEEDED 2 03/10/2017 Active venlafaxine (EFFEXOR-XR) 37.5 MG 24 hr capsule Take 37.5 mg by mouth daily. with food 5 03/18/2017 Active FREESTYLE LITE test strip USE TO CHECK BLOOD SUGAR TWICE A DAY 5 02/23/2019 Active ibuprofen 800 MG tablet TAKE 1 TABLET BY MOUTH EVERY 8 HOURS NEEDED FOR PAIN 270 tablet 2 08/25/2021 Active Active Problems Problem Noted Date Diagnosed Date Primary osteoarthritis of left knee 01/31/2019 Primary osteoarthritis of right knee 01/31/2019 Chronic pain of both knees 01/31/2019 Family History Medical History Relation Name Comments Cancer Father Diabetes Father Relation Name Status Comments Father Social History Tobacco Use Types Packs/Day Years Used Date Smoking Tobacco: Never Assessed Sex and Gender Information Value Date Recorded Sex Assigned at Not on file Gender Identity Not on file Sexual Orientation Not on file Job Start Date Occupation Industry Not on file Not on file Not on file Last Filed Vital Signs Vital Sign Reading Time Taken Comments Blood Pressure - - Pulse - - Temperature - - Respiratory Rate - - Oxygen Saturation - - Inhaled Oxygen Concentration - - Weight 105.2 kg (232 lb) 05/02/2019 11:23 AM EDT Height 177.8 cm (5' 10 ) 05/02/2019 11:23 AM EDT Body Mass Index 33.29 05/02/2019 11:23 AM EDT Plan of Treatment Health Maintenance Due Date Last Done Comments Hepatitis C Screening 1954 COVID-19 Vaccine (#1) 05[birth year]11/1955 Pneumococcal Vaccine (1 of 2 - PCV) 1960 Depression Screening 1966 BMI Counseling 1972 Preventative Health Evaluation 1972 DTap / Tdap / Td (1 - Tdap) 1973 Colon Cancer Screening (Colonoscopy) 1999 Breast Cancer Screening (Mammogram) 2004 Shingrix-Zoster Vaccine (1 of 2) 2004 Fall Risk Assessment 2019 Osteoporosis Screening (DEXA Scan) 2019 Influenza Vaccine (#1) 2024 RSV Adult > 60+ Yrs or Pregn ant (1 - 1-dose 75+ series) 2029 Hepatitis B Vaccines Aged Out No long er eligible based on patient's age to complete this topic RSV Ped < 20 months Aged Out No longe r eligible based on patient's age to complete this topic Care Teams Tread Cutter Relationship Specialty Start Date End Date John Carter MD [address] [place] [phone] PCP - General Internal Medicine 03/23/18
--- OUTSIDE RECORDS SUMMARY | 2025-01-23 12:40 | XMS_ITS | Encounter Summary ---
Author Organization [facility] Address [address] [place] [address] Care Team Providers Care Diazo Technician Name Role Phone John Carter MD Primary Care Provider [phone] Encounter Details Date Type Department Care Team (Late st Contact Info) Description 07/13/2024 Scanned Document [facility] [address] [phone] Jose Jamil MD [address] [address] Social History Tobacco Use Types Packs/Day Years [...] Description 01/16/2027 8:30 AM EDT Office Visit [facility] [place] [address] [place] [address] Ning Hartman APRN 85 [facility] [address] [place], [place] [id number] documented as of this encounter Goals Goal [...] made. GOAL DISCHARGED Patient will increase LUE automatic glove former/pinch strength by at least 10 lbs / 2lbs in order to increase independence opening containers in 6 weeks 08/16/2024 no progress with automatic glove former strength, continue with goal 09/27/2024 automatic glove former increased by 5 lbs. Progress made. GOAL [...] on filedocumented in this encounter Care Teams Diazo Technician Relationship Specialty Start Date End Date John Carter MD [address] [place] [address] PCP - General General Medicine 05/16/24 documented as of this encounter
--- OUTSIDE RECORDS SUMMARY | 2025-01-23 12:40 | XMS_ITS | Encounter Summary ---
Author Organization [facility] [employer] Address [address] [place] [address] [address] [place] [address] Care Team Providers Care Stem Teacher Name Role Phone John Carter MD Primary Care Provider [phone] Sheron Díaz PharmD Unavailable [phone] Encounter Details Date Type Department Care Team (Late st Contact Info) Description 02/15/2023 Orders Only [facility] & [facility]EDS [address] [place] [address] Echo Holloway LPN Social History Tobacco Use Types Packs/Day [...] Medication Management [facility] [address] [place] [address] Sheron Díaz, PharmD [address] [place] [address] 02/22/2025 9:15 AM EDT Office Visit [facility] [address] [place] [address] John Carter MD [address] [place] [address] documented as of this encounter Visit Diagnoses Not on filedocumented in this encounter Care Teams Stem Teacher Relationship Specialty Start Date End Date John Carter MD [address] [place] [address] PCP - General Internal Medicine 10/17/13 Sheron Díaz PharmD [address] [place] [address] Pharmacist Internal Medicine 11/13/24 documented as of this encounter
[2025-01-23 15:31] LABS: Free T4 (Free Thyroxine) 1.07 ng/dL (0.71-1.85); Thyroid Stimulating Hormone 1.15 uIU/mL (0.32-4.0)
[2025-01-23 19:00] LABS: Vitamin B12 652 pg/mL (200-900)
== END 2025-01-23 10:32 | disposition home or self-care (01) ==
LOC: HO.CHCLDS 10:31
PROVIDERS: PCP Internal Medicine; Referring Provider Student in an Organized Health Care Education/Training Program; Visit Provider Internal Medicine
DX: E11.9 Type 2 diabetes mellitus without complications (principal); E55.9 Vitamin D deficiency, unspecified; E04.2 Nontoxic multinodular goiter
CPT/HCPCS: 36415; 82607; 84439; 84443

== ENCOUNTER 2025-05-28 09:34 | Outpatient (REF) | payer MEDICARE, SELFPAY ==
--- OUTSIDE RECORDS SUMMARY | 2025-05-28 10:09 | XMS_ITS | Clinical Summary ---
Author Organization [employer] Address [address] [facility] [address] [place] [address] Care Team Providers Care Building Inspector Name Role Phone John Carter MD Primary Care Provider [phone] Sheron Díaz PharmD Unavailable [phone] Allergies Active Allergy Reactions Criticality Noted Date Comments Lorazepam 10/17/2015 Morphine Hives 07/29/2015 Medications triamcinolone (Kenalog) 0.1 % creamIndication s:Contact dermatitis due to other agent, unspecified contact dermatitis type Apply topically if needed in the morning and at bedtime (pain and swelling). 30 g 2 04/12/20 24 Active gabapentin (Neurontin) 400 MG capsuleIndicati ons:Neuropathic pain Take 1 capsule (400 mg) by mouth 3 times daily. 90 capsule 11 06/21/20 24 025 Active albuterol 108 (90 Base) MCG/ACT inhaler Inhale 2 puffs every 4 (four) hours if needed for wheezing. 18 g 07/13/20 24 025 Active methocarbamol (Robaxin) 750 MG tablet TAKE 1 TABLET BY MOUTH EVERY 6 HOURS 60 tablet 07/17/20 24 Active Cholecalciferol 50 MCG (2000 UT) tablet dispersibleIndi cations:Low vitamin D level Take 2,000 Units by mouth Once per day. 30 tablet 11 08/03/20 24 Active b complex vitamins capsule Take 1 capsule by mouth Once per day. Active riboflavin (vitamin B2) 100 mg tablet tablet 1-3 times per day Active acetaminophen (Tylenol) 500 MG tablet Active aspirin 325 MG tablet Active lidocaine (Lidoderm) 5 % patchIndication s:Cervical spondylosis without myelopathy Apply 1 patch topically Once per day. Remove & discard patch within 12 hours or as directed by . 30 patch 5 12/12/19 25 Active metFORMIN (Glucophage) 1000 MG tabletIndicatio ns:Type 2 diabetes mellitus without complication, without long-term current use of insulin ([facility]) TAKE 1 TABLET BY MOUTH TWICE A DAY WITH BREAKFAST AND DINNER 180 tablet 3 02/13/20 25 Active dapagliflozin (Farxiga) 10 MG Take 1 tablet (10 mg) by mouth Once per day. 90 tablet 3 02/13/20 25 Active Blood Glucose Monitoring Suppl (Accu-Chek Guide) w/Device kit 1 each Once per day. 1 kit 05/09/20 25 026 Active glucose blood (Accu-Chek Guide Test) test strip Test blood sugar once daily 100 each 3 05/28/20 25 026 Active Accu-Chek Softclix Lancets lancets Test blood sugar once daily 100 each 3 05/28/20 25 026 Active glucose blood (Accu-Chek Guide Test) test strip Once daily 100 each 12 05/09/20 25 025 Discontinued(Re order (will not trigger notification to Pharmacy)) Active Problems Problem Noted Date Diagnosed Date [...] Encounters Date Type Department Care Team Description 05/28/2025 Travel 05/09/2025 Refill [facility] [address] [place] [address] John Carter MD 05/08/2025 Telephone [facility] [address] [place] [address] John Carter MD Glucose Monitor from Last 3 Months Immunizations Immunization Administration Dates Next Due Tdap 07/28/2017 Social [...] Sign Reading Time Taken Comments Blood Pressure 152/78 05/28/2025 9:18 AM EDT Pulse 69 05/28/2025 9:18 AM EDT Temperature 36.6 C (97.8 F) 11/29/2024 10:53 AM EST Respiratory Rate 20 11/29/2024 10:5 [...] Care Team (Late st Contact Info) Description 07/09/2025 9:00 AM EDT Medication Management [facility] [address] [place] [address] Sheron Díaz, PharmD [address] [place] [address] Health Maintenance Due Date Last Done Comments CT Colonography 1954 Colonoscopy 1954 Colorectal Cancer Screening 1954 FIT DNA/Cologuard 1954 FIT 1954 FOBT 1954 SDOH Screening 1954 Sigmoidoscopy 1954 Derm Melanoma Skin Check 05/11/1955 Eye Exam 1964 Alcohol/Substance Use Screening 1966 Hepatitis A Vaccines (1 of 2 - Risk 2-dose series) 1973 Pneumococcal Vaccine: 50+ Years (1 of 2 - PCV) 1973 Zoster Vaccines (1 of 2) 2004 Hepatitis B Vaccines (1 of 3 - Risk 3-dose series) 2014 RSV Patients and Patients Aged 60 years or older (1 - Risk 60-74 years 1-dose series) 2014 Mammogram 06/11/2023 06/11/2021 Diabetes: Foot Exam 04/12/2025 04/12/2024, 04/12/2024, 04/12/2024, Additional history exists Diabetes: Hemoglobin A1C 05/15/2025 025, 11/13/2024, 06/23/2024, Additional history exists Influenza Vaccine (#1) 2025 Lipid Panel 06/23/2025 06/23/2024, 08/0 01/2021, 09/18/2020 COVID-19 Vaccine ( - 2023- season) 2025 01/28/2021 Postponed from 06/11/2024 (Patient Refused) Diabetes: Urine Protein Screening 08/04/2025 08/04/2024, 05/14/2021, 09/18/2020 Tobacco Screening 10/24/2025 10/24/2024 Depression Screening 11/29/2025 11/29/2024, 11/29/19 25 DTaP/Tdap/Td Vaccines (2 - Td or Tdap) 07/28/2027 07/28/2017 Hepatitis C Screening Completed 08/04/2024 HIB Vaccines Aged Out No longer eligi ble based on patient's age to complete this topic HPV Vaccines Aged Out No longer eligi ble based on patient's age to complete this topic IPV Vaccines Aged Out No longer eligi ble based on patient's age to complete this topic Meningococcal B Vaccine Aged Out No l onger eligible based on patient's age to complete [...] Diagnosis Comments POCT GLYCATED HEMOGLOBIN, TOTAL Routine 02/12/2025 9:36 AM EDT Type 2 diabetes mellitus without complication, without long-term current use of insulin (CMS/HCC) HEPATITIS C AB W/REFL TO HCV RNA, [...] Health Maintenance Results * (ABNORMAL) POCT A1C (02/12/2025 9:36 AM EDT) Hemoglobin A1C 8.0(A) 4.0 - 6.0 % QC Media Lot # [id number] Lot# Expiration Date Blood 02/12/2025 9:3 6 AM EDT us John Carter MD POINT OF CARE TEST ENTER/ED IT ORDERABLES Final Result * Hepatitis C Antibody with Reflex to HCV, RNA, Quantitative, Real-Time PCR (08/04/2024 1:38 PM EDT) Hepatitis C Antibody Nonreactive Nonreactive [facility] Comment:Antibodies to HCV no t detected; does not exclude early acuteHCV infection. Blood Venous blood specimen / Unknown 08/04/2024 1:38 PM EDT 08/04/2024 2:16 PM EDT us John Carter MD LAB BLOOD ORDERABLES Final Result Performing Organization Address [facility] de Phone Number [facility] [address] [place] [phone] * Albumin, Random Urine W/Creatinine (08/04/2024 1:36 PM EDT) Creatinine, Urine 74.86 mg/dL [facility] Microalbumin Urine 16.0 mg/L [facility] Microalbum Creatinine Ratio Ur 21.3 <30 ug/mg cr [facility] Comment:Albumin/Creatinine R atio Reference Ranges: Normal: < 30 ug/mg creatinine Microalbuminuria: 30 - 300 ug/mg creatinineClinical Albuminuria: > 300 ug/mg creatinine Urine (Urine, Random) 08/04/2024 1:36 PM EDT 08/04/2024 2:10 PM EDT us John Carter MD LAB URINE ORDERABLES Final Result Performing Organization Address [facility] Phone Number [facility] [address] [place] [phone] * (ABNORMAL) Lipid Panel, Standard (06/23/2024 10:05 AM EDT) Triglycerides 121 <150 mg/dL [facility] Comment:Desirable Triglyceri de: less than 150 mg/dLBorderline High Triglyceride 150-199 mg/dLHigh Triglyceride: 200-499 mg/dLVery High Triglyceride: greater than or equal to 5OO mg/dL Cholesterol 200(H) <200 mg/dL [facility] Comment:Desirable Cholestero l: less than 200 mg/dLBorderline High Cholesterol: 200-239 mg/dLHigh Cholesterol: greater than 239 mg/dL LDL Cholesterol Calculated 133(H) <100 mg/dL [facility] Comment:Desirable LDL: less than 100 mg/dLNear Optimal/Above Optimal LDL: 110- 129 mg/dLBorderline High LDL: 130-159 mg/dLHigh LDL: 160-189 mg/dLVery High LDL: greater than or equal to 190 mg/dL HDL Cholesterol 43 >40 mg/dL [facility] Comment:Desirable HDL: great er than 40 mg/dL Note: This HDL assay may give artificially low results in patients with liver disease. Blood Venous blood specimen / Unknown 06/23/2024 10:05 AM EDT 06/23/2024 2:52 PM EDT us Mae Juarez MD LAB BLOOD ORDERABLES Final Resul t [facility] [address] [place] [phone] * Mammography Report 1 (06/11/2021 8:45 AM EDT) Anatomical Region Laterality Modality Breast Bilateral Mammography 06/11/2021 8:45 AM EDT Narrative 06/11/2021 12:00 PM EDT Refer to the Notes tab for result details [facility] Procedure: Mammography Report 1 Procedure Note Provider, MD Erin - 01/03/2023 Refer to the Notes tab for result details [facility] Procedure: Mammography Report 1 us John Carter MD IMG BI PROCEDURES Final Res ult from Last 3 Months or Most Recently Relevant to Health Maintenance Insurance [facility] MEDICARE REPLACEMENT Care Teams Building Inspector Relationship Specialty Start Date End Date John Carter MD [address] [place] [phone] PCP - General Internal Medicine 10/17/13 Sheron Díaz, RaynaD [address] [place] [phone] Pharmacist Internal Medicine 11/13/24
--- OUTSIDE RECORDS SUMMARY | 2025-05-28 10:09 | XMS_ITS | Clinical Summary ---
Author Organization [facility] Address [address] [place] [address] Care Team Providers Care Aviation Boatswain'S Mate Name Role Phone John Carter MD Primary Care Provider [phone] Allergies Active Allergy Reactions Criticality Noted Date [...] Screening (DEXA Scan) 2019 Influenza Vaccine (#1) 2025 RSV Adult > 60+ Yrs or Pregn ant (1 - 1-dose 75+ series) 2029 Hepatitis B Vaccines Aged Out No long er eligible based on patient's age to complete this topic RSV Ped < 20 months Aged Out No longe r eligible based on patient's age to complete this topic Care Teams Aviation Boatswain'S Mate Relationship Specialty Start Date End Date John Carter MD [address] [place] [phone] PCP - General Internal Medicine 03/23/18
--- OUTSIDE RECORDS SUMMARY | 2025-05-28 10:09 | XMS_ITS ---
Author Name [facility] Organization Unknown History of Medication Use Medication Directions Dispensed Refills Start Date End Date Stat us aspirin (GWEN ASPIRIN) 325 MG tablet active gabapentin (NEURONTIN) 400 MG capsule Take 1 capsule (400 mg total) by mouth 3 (three) times a day. active metFORMIN (GLUCOPHAGE) 1000 MG tablet Take 1 tablet (1,000 mg total) by mouth 2 (two) times a day with breakfast and dinner. active Allergies Allergen Reaction Severity Comment Documented Date Source Statu s MORPHINE RASH/DERMATITIS 07/12/2024 [facility] acti ve Problems Problem Status Onset Date Problem Type Date of Resoluti on Source Trigger middle finger of right hand active EncounterDiagnosisAct [facility] Bilateral carpal tunnel syndrome active EncounterDiagnosisAct [facility] CT Encounters Encounter Type Encounter Reason Primary Diagnosis Location Date Ambulatory Follow-up Follow-up [facility] 04/18/2025 Ambulatory Occlusion and stenosis of bilateral carotid arteries Occlusion and stenosis of bilateral carotid arteries [facility] 12/21/2024 Ambulatory Occlusion and stenosis of bilateral carotid arteries Occlusion and stenosis of bilateral carotid arteries [facility] 12/21/2024 Ambulatory Trigger thumb, right thumb Trigger thumb, right thumb [facility] 12/20/2024 Ambulatory Trigger thumb, right thumb Trigger thumb, right thumb [facility] 10/18/2024 Ambulatory Carpal tunnel syndrome, bilateral upper limbs Carpal tunnel syndrome, bilateral upper limbs [facility] 09/27/2024 Ambulatory Carpal tunnel syndrome, bilateral upper limbs Carpal tunnel syndrome, bilateral upper limbs [facility] 09/25/2024 Ambulatory Paresthesia of skin Paresthesia of skin [facility] 09/21/2024 Ambulatory Carpal tunnel syndrome, bilateral upper limbs Carpal tunnel syndrome, bilateral upper limbs [facility] 09/20/2024 Ambulatory Carpal tunnel syndrome, bilateral upper limbs Carpal tunnel syndrome, bilateral upper limbs [facility] 09/18/2024 Ambulatory Carpal tunnel syndrome, bilateral upper limbs Carpal tunnel syndrome, bilateral upper limbs [facility] 09/15/2024 Ambulatory [employer] [employer] 09/13/2024 Ambulatory [facility] [employer] [facility] 09/08/2024 Ambulatory Carpal tunnel syndrome, bilateral upper limbs Carpal tunnel syndrome, bilateral upper limbs [place] [employer] [facility] 09/06/2024 Ambulatory Follow-up Follow-up [facility] 09/06/2024 Ambulatory Carpal tunnel syndrome, bilateral upper limbs Carpal tunnel syndrome, bilateral upper limbs [facility] [employer] [facility] 08/30/2024 Ambulatory Carpal tunnel syndrome, bilateral upper limbs Carpal tunnel syndrome, bilateral upper limbs [place] [employer] [facility] 08/25/2024 Ambulatory Carpal tunnel syndrome, bilateral upper limbs Carpal tunnel syndrome, bilateral upper limbs [place] [employer] [facility] 08/21/2024 Ambulatory Carpal tunnel syndrome, bilateral upper limbs Carpal tunnel syndrome, bilateral upper limbs [place] [employer] [facility] 08/16/2024 Ambulatory Carpal tunnel syndrome, bilateral upper limbs Carpal tunnel syndrome, bilateral upper limbs [facility] 08/14/2024 Ambulatory Carpal tunnel syndrome, bilateral upper limbs Carpal tunnel syndrome, bilateral upper limbs [place] [employer] [facility] 08/09/2024 Ambulatory Carpal tunnel syndrome, bilateral upper limbs Carpal tunnel syndrome, bilateral upper limbs [facility] 08/07/2024 Ambulatory Carpal tunnel syndrome, bilateral upper limbs Carpal tunnel syndrome, bilateral upper limbs [facility] 08/04/2024 Ambulatory Carpal tunnel syndrome, bilateral upper limbs Carpal tunnel syndrome, bilateral upper limbs [facility] [employer] [facility] 07/31/2024 Ambulatory Carpal tunnel syndrome, bilateral upper limbs Carpal tunnel syndrome, bilateral upper limbs [facility] 07/26/2024 Ambulatory Post-op Post-op [employer] 07/26/2024 Ambulatory Carpal tunnel syndrome, bilateral upper limbs Carpal tunnel syndrome, bilateral upper limbs [place] [employer] [facility] 07/24/2024 Ambulatory Carpal tunnel syndrome, bilateral upper limbs Carpal tunnel syndrome, bilateral upper limbs [facility] 07/21/2024 Ambulatory Carpal tunnel syndrome, bilateral upper limbs Carpal tunnel syndrome, bilateral upper limbs [facility] [employer] 07/17/2024 Ambulatory Carpal tunnel syndrome, bilateral upper limbs Carpal tunnel syndrome, bilateral upper limbs [facility] 07/14/2024 Ambulatory Carpal tunnel syndrome, bilateral upper limbs Carpal tunnel syndrome, bilateral upper limbs [facility] 07/12/2024 Ambulatory MODIFY Trigger finger, left middle finger [facility] 07/11/2024 Ambulatory Carpal tunnel syndrome, right upper limb Carpal tunnel syndrome, right upper limb [facility] 07/05/2024 Ambulatory Carpal tunnel syndrome, left upper limb Carpal tunnel syndrome, left upper limb [facility] 06/28/2024 Ambulatory [employer] 06/28/2024 Ambulatory MODIFY Trigger finger, left middle finger [facility] 06/27/2024 Ambulatory Trigger finger, left middle finger Trigger finger, left middle finger [facility] 06/07/2024 Ambulatory [employer] 05/17/2024 Ambulatory [facility] 04/16/2023 Ambulatory [facility] 04/16/2023 Ambulatory [facility] 04/16/2023 Care Team Organization Name Specialty Phone Email Start Date End Da te [facility] 06/07/2024 [facility] Primary Care 05/17/2024 05/17/2025 [facility] SIMONE [facility] Primary Care 05/17/2024 [facility] 05/16/2024
--- OUTSIDE RECORDS SUMMARY | 2025-05-28 10:09 | XMS_ITS | Encounter Summary ---
Author Organization [facility] Address [address] [place] [address] Care Team Providers Care Marzipan Maker Name Role Phone John Carter MD Primary Care Provider [phone] Reason for Referral * Consultation (Routine) - Pending Review Specialty Diagnoses / Procedures Referred By Fermin glover Referred To Contact Neurology Diagnoses Carpal tunnel syndrome on right Jose Jamil MD [address] [place] [address] Phone: tel: fax: Son Jacinto MD [address] [place] [address] [place] [address] Phone: tel: fax: Referral ID Status Reason Start Date Expiration Date Visits Requested Visits Authorized [id number] Pending Review Consult 05/17/2025 05/18/2026 1 1 Comments EMG/NCS REFERRAL FROM DR. JAMIL TO DR. JACINTO OR FIRST AVAILABLE. RIGHT S/P CTR? RECURRENCE. PLEASE CALL PATIENT TO SCHEDULE APPOINTMENT Encounter Details Date Type Department Care Team (Late st Contact Info) Description 05/17/2025 Orders Only [facility] [address] [phone] Jose Jamil MD [address] [place] [address] Carpal tunnel syndrome on right (Primary Dx) Social History Tobacco Use Types Packs/Day Years Used Date Smoking Tobacco: Former Cigarettes Q uit: 09/23/1991 Smokeless Tobacco: Never Comments Unknown Sex and Gender Information Value Date Recorded Sex Assigned at Female 05/17/2024 8:26 AM EDT Legal Sex Female 6:19 PM EST Gender Identity Female 05/17/2024 8:26 AM EDT Sexual Orientation Choose not to disclose 2023 8:26 AM EDT documented as of this encounter Plan of Treatment Upcoming Encounters Date Type Department Care Team (Late st Contact Info) Description 01/16/2027 8:30 AM EDT Office Visit [facility] [place] [address] [phone] Ning Hartman, FIDELINA [address] [facility] [address] [place] [address] Scheduled Referrals Name Type Priority Associated Diagnoses Orde r Schedule Amb Referral to Neurology Outpatient Referral Routine Carpal tunnel syndrome on right Ordered: 05/17/2025 documented as of this encounter Goals Goal [...] made. GOAL DISCHARGED Patient will increase LUE exchange specialist/pinch strength by at least 10 lbs / 2lbs in order to increase independence opening containers in 6 weeks 08/16/2024 no progress with exchange specialist strength, continue with goal 09/27/2024 exchange specialist increased by 5 lbs. Progress made. GOAL DISCHARGED Patient will increase L digit ROM to complete full composite fist without discomfort in middle finger to increase independence in gripping/carrying tasks in 6 weeks. 08/16/2024 improved ROM with discomfort remaining in middle finger, continue with goal 09/27/2024 great improvements in ROM. GOAL MET documented as of this encounter Visit Diagnoses Diagnosis Carpal tunnel syndrome on right- Primary Carpal tunnel syndrome documented in this encounter Care Teams Marzipan Maker Relationship Specialty Start Date End Date John Carter MD [address] [place] [phone] PCP - General General Medicine 05/16/24 documented as of this encounter
[2025-05-28 14:33] LABS: Anion Gap 15 (12-20); Blood Urea Nitrogen 14 mg/dL (9-16); Calcium 9.9 mg/dL (8.4-10.2); Carbon Dioxide 27 mmol/L (22-29); Chloride 102 mmol/L (96-108); Estimated Glomerular Filt Rate > 60; Potassium 4.6 mmol/L (3.3-5.1); Sodium 139 mmol/L (135-145)
[2025-05-28 14:52] LABS: Microalbum/Creatinine Ratio Ur 22.1 ug/mg cr (<30)
== END 2025-05-28 09:35 | disposition home or self-care (01) ==
LOC: HO.CHCLDS 09:34
PROVIDERS: Visit Provider Internal Medicine
DX: E11.9 Type 2 diabetes mellitus without complications (principal)
CPT/HCPCS: 36415; 80048; 82043; 82570

== ENCOUNTER 2025-10-03 09:19 | Outpatient (REF) | payer MEDICARE, SELFPAY ==
--- NOTE | ~2025-10-03 | US_ITS ---
EXAMINATION: US THYROID HISTORY: E55.9 - Vitamin D deficiency, unspecified TECHNIQUE: Real-time grayscale ultrasound imaging was performed and images were reviewed. COMPARISON: Comparison is made with the prior examination dated 06/13/2024. FINDINGS: SIZE: The right thyroid lobe measures 5.4 x 2.5 x 1.8 cm. The left thyroid lobe measures 4.8 x 1.7 x 1.7 cm. The isthmus measures 3 mm. FLOW: Flow to the gland is normal. ECHOGENICITY: The echotexture of the gland is homogeneous. NODULES: Again seen are multiple nodules as described below: Nodule #: 1 Location: Lower pole of the right thyroid lobe measuring 4 x 4 x 5 mm (not seen previously). Shape: Wider than tall (0 points) Margins: Smooth (0 points) Echotexture: Isoechoic (1 point) Composition: Solid (2 points) Calcifications: None (0 points) Total points: 3 TIRADS: TR3: Mildly suspicious. Nodule #: 2 Location: Lower pole of the right thyroid lobe measuring 8 x 7 x 11 mm (previously 10 x 7 x 11 mm). Shape: Wider than tall (0 points) Margins: Smooth (0 points) Echotexture: Hypoechoic (2 points) Composition: Solid (2 points) Calcifications: None (0 points) Total points: 4 TIRADS: TR4: Moderately suspicious. Nodule #: 3 Location: Lower pole of the left thyroid lobe measuring 4 x 3 x 4 mm (not seen previously). Shape: Wider than tall (0 points) Margins: Smooth (0 points) Echotexture: Isoechoic (1 point) Composition: Mostly solid (2 points) Calcifications: None (0 points) Total points: 3 TIRADS: TR3: Mildly suspicious. Nodule #: 4 Location: Lower pole of the left thyroid lobe measuring 9 x 7 x 8 mm (previously 10 x 9 x 10 mm). Shape: Wider than tall (0 points) Margins: Smooth (0 points) Echotexture: Isoechoic (1 point) Composition: Mixed (1 point) Calcifications: None (0 points) Total points: 2 TIRADS: TR2: Not suspicious US/US thyroid IMPRESSION: Stable bilateral thyroid nodules as described. ACR TI-RADS Guidelines TR1 (0 points): Benign. No follow-up or biopsy required TR2 (2 points): Not Suspicious. No biopsy or follow up indicated TR3 (3 points): Mildly Suspicious. FNA if >= 2.5 cm, Follow if >= 1.5 cm TR4 (4-6 points): Moderately Suspicious. FNA if >= 1.5 cm, Follow if >= 1.0 cm TR5 (>=7 points): Highly Suspicious. FNA if >= 1.0 cm, Follow if >= 0.5 cm Electronically signed by: Serafin Wiley MD 10/03/2025 10:20 AM [facility]
--- OUTSIDE RECORDS SUMMARY | 2025-10-03 09:23 | XMS_ITS | Encounter Summary ---
Author Organization [employer] Address [address] [place] [address] [address] [place] [address] Care Team Providers Care Emr Implementation Specialist Name Role Phone John Carter MD Primary Care Provider Sheron Díaz PharmD Unavailable [phone] Encounter Details Date Type Department Care Team (Late Contact Info) Description 01/24/2025 Orders Only [facility] [address] [place], [place] [phone] John Carter MD [address] [place], [place] [phone] Social History Tobacco Use Types Packs/Day Years [...] Department Care Team (Late Contact Info) Description 10/15/2025 9:00 AM EST Medication Management [facility] [address] [place], [place] [phone] Sheron Díaz, PharmD [address] [place], [place] [phone] documented as of this encounter Visit Diagnoses Not on filedocumented in this encounter Care Teams Emr Implementation Specialist Relationship Specialty Start Date End Date John Carter MD [address] [place] [phone] PCP - General Internal Medicine 10/17/13 Sheron Díaz PharmD [address] [place] [phone] Pharmacist Internal Medicine 11/13/24 documented as of this encounter
--- OUTSIDE RECORDS SUMMARY | 2025-10-03 09:23 | XMS_ITS | Clinical Summary ---
Author Organization [employer] Address [facility] 7t [place] [address] Care Team Providers Care Manager Simulation Name Role Phone John Carter MD Primary Care Provider Sheron Díaz PharmD Unavailable [phone] Allergies Active Allergy Reactions Criticality Noted Date Comments Lorazepam 10/17/2015 Morphine Hives 07/29/2015 Medications triamcinolone (Kenalog) 0.1 % creamIndications :Contact dermatitis due to other agent, unspecified contact dermatitis type Apply topically if needed in the morning and at bedtime (pain and swelling). 30 g 2 4 Active methocarbamol (Robaxin) 750 MG tablet TAKE 1 TABLET BY MOUTH EVERY 6 HOURS 60 tablet 4 Active Cholecalciferol 50 MCG (2000 UT) tablet dispersibleIndic ations:Low vitamin D level Take 2,000 Units by mouth Once per day. 30 tablet 11 4 Active b complex vitamins capsule Take 1 [...] as directed by . 30 patch 5 5 Active metFORMIN (Glucophage) 1000 MG tabletIndication s:Type 2 diabetes mellitus without complication, without long-term current use of insulin (HCC) TAKE 1 TABLET BY MOUTH TWICE A DAY WITH BREAKFAST AND DINNER 180 tablet 3 5 Active dapagliflozin (Farxiga) 10 MG Take 1 tablet (10 mg) by mouth Once per day. 90 tablet 3 5 Active Blood Glucose Monitoring Suppl (Accu-Chek Guide) w/Device kit 1 each Once per day. 1 kit 5 05/09/20 26 Active glucose blood (Accu-Chek Guide Test) test strip Test blood sugar once daily 100 each 3 5 05/28/20 26 Active Accu-Chek Softclix Lancets lancets Test blood sugar once daily 100 each 3 5 05/28/20 26 Active albuterol 108 (90 Base) MCG/ACT inhaler INHALE 2 PUFFS BY MOUTH EVERY 4 HOURS NEEDED FOR WHEEZING 18 g 5 Active albuterol 108 (90 Base) MCG/ACT inhalerIndicatio ns:Wheezing Inhale 2 puffs every 4 (four) hours if needed for wheezing. 18 g 5 07/16/20 26 Active gabapentin (Neurontin) 400 MG capsuleIndicatio ns:Neuropathic pain TAKE 1 CAPSULE BY MOUTH 3 TIMES DAILY. 90 capsule 5 5 Active Active Problems Problem Noted Date [...] Encounters Date Type Department Care Team Description 08/28/2025 Refill [facility] [address] [place] [address] John Carter MD Neuropathic pain 07/16/2025 Refill [facility] [address] [place] [address] John Carter MD Wheezing 07/16/2025 [facility]ill [facility] [address] [place] [address] John Carter MD 07/13/2025 Travel 07/11/2025 10:00 AM EDT Office Visit [facility] [address] [place] [address] Yolanda Kirkland CNP Pre-op evaluation (Primary Dx); Type 2 diabetes mellitus without complication, without long-term current use of insulin (HCC); ANTONETTE (obstructive sleep apnea); Elevated BP without diagnosis of hypertension; Hypercholesterolemia 07/11/2025 Telephone [facility] [address] [place] [address] John Carter MD Pre-op Exam 07/11/2025 Travel 07/11/2025 Telephone [facility] [address] [place] [address] John Carter MD chart prep 07/06/[address] [address] John Carter MD Pre-op Exam from Last 3 Months Immunizations Immunization Administration [...] Sign Reading Time Taken Comments Blood Pressure 160/80 07/11/2025 10:16 AM EDT Pulse 82 07/11/2025 10:16 AM EDT Temperature 36.6 C (97.8 F) 07/11/2025 10:16 AM EDT Respiratory Rate 12 07/11/2025 10:16 AM EDT Oxygen Saturation 99% 07/11/2025 10:16 AM EDT Inhaled Oxygen Concentration - - Weight 96.6 kg (213 lb) 07/11/2025 10:16 AM EDT Height 176.8 cm (5' 9.59 ) 07/11/2025 10:16 AM E DT Body Mass Index 30.92 07/11/2025 10:16 AM EDT Plan of Treatment Upcoming Encounters Date Type Department Care Team (Late st Contact Info) Description 10/15/2025 9:00 AM EST Medication Management [facility] [address] [place] [address] Sheron Díaz, PharmD [address] [place], [place] [phone] Health Maintenance Due Date Last Done Comments CT Colonography 1954 Colonoscopy 1954 Colorectal Cancer Screening 1954 FIT DNA/Cologuard 1954 FIT 1954 FOBT 1954 SDOH Screening 1954 Sigmoidoscopy 1954 Derm Melanoma Skin Check 05/11/1955 Eye Exam 1964 Alcohol/Substance Use Screening 1966 Pneumococcal Vaccine: 50+ Years (1 of 2 - PCV) 1973 Zoster Vaccines (1 of 2) 2004 Mammogram 06/11/2023 06/11/2021 Diabetes: Foot Exam 04/12/2025 04/12/2024, 04/12/2024, 04/12/2024, Additional history exists COVID-19 Vaccine (2 - 2024- season) 2025 01/28/2021 Influenza Vaccine (#1) 2025 Lipid Panel 06/23/2025 06/23/2024, 08/0 01/2021, 09/18/2020 Diabetes: Hemoglobin A1C 10/13/2025 025, 05/28/2025, 02/12/2025, Additional history exists Tobacco Screening 10/24/2025 10/24/2024 Depression Screening 11/29/2025 11/29/2024, 11/29/19 25 Diabetes: Urine Protein Screening 05/28/2026 05/28/2025, 05/28/2025, 08/04/2024, Additional history exists DTaP/Tdap/Td Vaccines (2 - Td or Tdap) 07/28/2027 07/28/2017 RSV Patients and Patients Aged 60 years or older (1 - 1-dose 75+ series) 2029 Hepatitis C Screening Completed 08/04/2024 HIB Vaccines Aged Out No longer eligi ble based on patient's age to complete this topic HPV Vaccines Aged Out No longer eligi ble based on patient's age to complete this topic Hepatitis A Vaccines Aged Out No long er eligible based on patient's age to complete this topic Hepatitis B Vaccines Aged Out No long [...] Diagnosis Comments POCT GLYCATED HEMOGLOBIN, TOTAL Routine 07/13/2025 9:05 AM EDT Type 2 diabetes mellitus without complication, without long-term current use of insulin (HCC) ECG 12-LEAD Routine 07/11/2025 10:21 AM EDT Type 2 diabetes mellitus without complication, without long-term current use of insulin (HCC) Pre-op evaluation ANTONETTE (obstructive sleep apnea) Elevated BP without diagnosis of hypertension POCT GLUCOSE (CPT-19195) Routine 07/11/2025 10:17 AM EDT Type 2 diabetes mellitus without complication, without long-term current use of insulin (HCC) ALBUMIN, RANDOM URINE W/CREATININE Routine 05/28/2025 9:36 AM EDT HEPATITIS C AB W/REFL TO HCV RNA, QN, PCR Routine 08/04/2024 1:38 PM EDT Transaminitis LIPID PANEL, STANDARD Routine 06/23/2024 10:05 AM EDT Type 2 diabetes mellitus without complication, with long-term current use of insulin ([facility]) MAMMOGRAM GENERIC Routine 06/11/2021 8:4 5 AM EDT from Last 3 Months or Most Recently Relevant to Health Maintenance Results * (ABNORMAL) POCT A1c (07/13/2025 9:05 AM EDT) Hemoglobin A1C 8.1(A) 4.0 - 5.7 % QC Media Lot # [id number] Lot# Expiration Date 993, Blood 07/13/2025 9:05 AM EDT John Carter MD POINT OF CARE TEST ENTER/ED IT ORDERABLES Final Result * ECG 12 lead (07/11/2025 10:21 AM EDT) Narrative Yolanda Kirkland CNP - 07/11/2025 10:21 AM EDT NSR with RBBB consistent with prior ECG studies [facility] ECG ORDERABLES Final Res ult * (ABNORMAL) POCT glucose manually resulted (07/11/2025 10:17 AM EDT) Glucose Blood, POC 257(A) 60 - 200 mg/dL QC Media Lot # Comment:[id number] Lot# Expiration Date Comment:09/29/2025 Blood Capillary blood specimen / Unknown 07/11/2025 10:17 AM EDT [facility] POINT OF CARE TEST ENTER/ EDIT ORDERABLES Final Result * Albumin, Random Urine W/Creatinine (05/28/2025 9:36 AM EDT) Creatinine, Urine 36.18 mg/dL [facility] Microalbumin Urine 8.0 mg/L [facility] Microalbum Creatinine Ratio Ur 22.1 <30 ug/mg cr [facility] Comment:Albumin/Creatinine R atio Reference Ranges: Normal: < 30 ug/mg creatinine Microalbuminuria: 30 - 300 ug/mg creatinineClinical Albuminuria: > 300 ug/mg creatinine 05/28/2025 9:36 AM EDT 05/28/2025 2:06 PM EDT us John Carter MD LAB URINE ORDERABLES Final Result Performing Organization Address City/[facility] Co de Phone Number [facility] [address] [place] [address] [phone] * Hepatitis C Antibody with Reflex to HCV, RNA, Quantitative, Real-Time PCR (08/04/2024 1:38 PM EDT) Hepatitis C Antibody Nonreactive Nonreactive [facility] Comment:Antibodies to HCV no t detected; does not exclude early acuteHCV infection. Blood Venous blood specimen / Unknown 08/04/2024 1:38 PM EDT 08/04/2024 2:16 PM EDT us John Carter MD LAB BLOOD ORDERABLES Final Result Performing Organization Address [facility] Co de Phone Number [facility] [address] [place] [phone] * (ABNORMAL) Lipid Panel, Standard (06/23/2024 10:05 AM EDT) Triglycerides 121 <150 mg/dL [facility] Comment:Desirable Triglyceri de: less than 150 mg/dLBorderline High Triglyceride 150-199 mg/dLHigh Triglyceride: 200-499 mg/dLVery High Triglyceride: greater than or equal to 5OO mg/dL Cholesterol 200(H) <200 mg/dL [facility] Comment:Desirable Cholestero l: less than 200 mg/dLBorderline High Cholesterol: 200-239 mg/dLHigh Cholesterol: greater than 239 mg/dL LDL Cholesterol Calculated 133(H) <100 mg/dL [facility] Comment:Desirable LDL: less than 100 mg/dLNear Optimal/Above Optimal LDL: 110- 129 mg/dLBorderline High LDL: 130-159 mg/dLHigh LDL: 160-189 mg/dLVery High LDL: greater than or equal to 190 mg/dL HDL Cholesterol 43 >40 mg/dL [facility] Comment:Desirable HDL: great er than 40 mg/dL Note: This HDL assay may give artificially low results in patients with liver disease. Blood Venous blood specimen / Unknown 06/23/2024 10:05 AM EDT 06/23/2024 2:52 PM EDT us Mae Juarez MD LAB BLOOD ORDERABLES Final Resul t [facility] [address] [place] [phone] * Mammography Report 1 (06/11/2021 8:45 [...] Most Recently Relevant to Health Maintenance Insurance [facility] MEDICARE REPLACEMENT Care Teams Manager Simulation Relationship Specialty Start Date End Date John Carter MD [address] [place] [phone] PCP - General Internal Medicine 10/17/13 Sheron Díaz, RaynaD [address] [place] [phone] Pharmacist Internal Medicine 11/13/24
--- OUTSIDE RECORDS SUMMARY | 2025-10-03 09:23 | XMS_ITS | Encounter Summary ---
Author Organization [facility] Address [address] [place] [address] Care Team Providers Care Photographer Helper Name Role Phone John Carter MD Primary Care Provider [phone] Encounter Details Date Type Department Care Team (Late st Contact Info) Description 05/17/2024 Scanned Document Orthopedic [address] [phone] Jose Jamil MD [address] [place] [address] Social History Tobacco Use Types Packs/Day Years [...] Care Team (Late st Contact Info) Description 10/12/2025 8:00 AM EST Treatment Orthopedic [address] [place] [address] Staci Horton, OT [address] [place] [address] 10/17/2025 9:00 AM EST Office Visit [facility] [address] [place] [address] Jose Jamil MD [address] [facility] 100 [place] [address] 01/16/2027 8:30 AM EDT Office Visit [facility] [place] [address] [facility] [address] [place] [phone] Ning Hartman APRN 85 [facility] [address] [place] [address] documented as of this encounter Visit Diagnoses Not on filedocumented in this encounter Care Teams Photographer Helper Relationship Specialty Start Date End Date John Carter MD [address] [place] [phone] PCP - General General Medicine 05/16/24 documented as of this encounter
--- OUTSIDE RECORDS SUMMARY | 2025-10-03 09:23 | XMS_ITS | Encounter Summary ---
Author Organization [facility] Address [address] [place] [address] Care Team Providers Care Clinical Social Worker Name Role Phone John Carter MD Primary Care Provider [phone] Encounter Details Date Type Department Care Team (Late st Contact Info) Description 07/17/2025 Scanned Document Orthopedic [address] [phone] Jose Jamil MD [address] [place] [address] Social History Tobacco Use Types Packs/Day Years Used Date Smoking Tobacco: Former Cigarettes 0 Q uit: 09/23/1991 Smokeless Tobacco: Never Comments [...] Description 10/12/2025 8:00 AM EST Treatment Orthopedic [address] [place] [address] Staci Horton, OT [address] [place] [address] 10/17/2025 9:00 AM EST Office Visit [facility] 7 [facility] [address] [place] [address] Jose Jamil MD 31 [facility] 100 [place], [place] [phone] 01/16/2027 8:30 AM EDT Office Visit [facility] [place] 85 [facility] [address] [place] [phone] Ning Hartman, FIDELINA 85 [facility] [address] [place] [address] documented as of this encounter Goals Goal Patient Goal Type Associated Problems Recent Progress Patient-Stated? Author OT LTG 1 Occupational Therapy Cookie Carrillo OT Note: Patient will be I in [...] made. GOAL DISCHARGED Patient will increase LUE jewelry technician/pinch strength by at least 10 lbs / 2lbs in order to increase independence opening containers in 6 weeks 08/16/2024 no progress with jewelry technician strength, continue with goal 09/27/2024 jewelry technician increased by 5 lbs. Progress made. [...] filedocumented in this encounter Care Teams Clinical Social Worker Relationship Specialty Start Date End Date John Carter MD [address] [place] [address] PCP - General General Medicine 05/16/24 documented as of this encounter
--- OUTSIDE RECORDS SUMMARY | 2025-10-03 09:23 | XMS_ITS | Clinical Summary ---
Author Organization [facility] Address [address] [place] [address] Care Team Providers Care Bottom Filler Name Role Phone John Carter MD Primary Care Provider Allergies Active Allergy Reactions Criticality Noted Date Comments Morphine Rash/Dermatitis Low 07/12/2024 Medications traMADol (ULTRAM) 50 MG tabletIndicatio ns:Right carpal tunnel syndrome Take 1 tablet (50 mg total) by mouth 4 times daily (every 6 hours) as needed for severe pain. 10 tablet 4 Active methocarbamol (ROBAXIN) 750 MG tablet Take 1 tablet (750 mg total) by mouth every 6 (six) hours. 4 Active metFORMIN (GLUCOPHAGE) 1000 MG tablet Take 1 tablet (1,000 mg total) by mouth 2 (two) times a day with breakfast and dinner. Active gabapentin (NEURONTIN) 400 MG capsule Take 1 capsule (400 mg total) by mouth 3 (three) times a day. Active D3 50 MCG (2000 UT) Chew Tab Chew 1 tablet. Chew and swallow tablet. 4 Active albuterol (PROVENTIL HFA; VENTOLIN HFA) 108 (90 Base) MCG/ACT inhaler Inhale 2 puffs every 4 (four) hours as needed. 4 Active aspirin (GWEN ASPIRIN) 325 MG tablet Active HYDROcodone-rhona taminophen (NORCO) 5-325 mg per tabletIndicatio ns:Trigger finger of right thumb Take 1 tablet by mouth 4 times daily (every 6 hours) as needed for severe pain. Max Daily Amount: 4 tablets 10 tablet 5 Active Active Problems No known active problems Encounters Date Type Department Care Team Description 09/19/2025 9:30 AM EST [facility] [address] [address] Staci Horton, OT Trigger finger of right thumb (Primary Dx) 09/12/2025 8:30 AM EST [facility] [address] [address] Staci Horton, OT Trigger finger of right thumb (Primary Dx) 09/05/2025 8:30 AM EST [facility] [address] [address] Staci Horton, OT Trigger finger of right thumb (Primary Dx) 08/31/2025 10:30 AM EST Evaluation [facility] [address] [address] Jose Jamil MD Canessa-Bisignano, Camellia, OT Trigger finger of right thumb (Primary Dx) 08/22/2025 9:15 AM EST [facility] [address] [address] Jose Jamil MD Trigger finger of right thumb (Primary Dx) 07/25/2025 9:15 AM EDT [facility] [address] [address] Annette Sewell PA Trigger finger of right thumb (Primary Dx) 07/18/2025 10:45 AM EDT [facility] [address] [address] Annette Sewell PA Trigger finger of right thumb (Primary Dx) 07/17/2025 Scanned Document [facility] [address] [phone] Jose Jamil MD 07/04/2025 9:30 AM EDT [facility] [place] [phone] Jose Jamil MD Trigger finger of right thumb (Primary Dx) from Last 3 Months Social History Tobacco Use Types Packs/Day Years Used Date Smoking Tobacco: Former Cigarettes 0 Q uit: 09/23/1991 Smokeless Tobacco: Never Tobacco Cessation:Counseling Given: Not Answered Comments Unknown Sex and Gender Information Value [...] Description 10/12/2025 8:00 AM EST Treatment [facility] [place] [phone] Staci Horton, OT [address] [place] [address] 10/17/2025 9:00 AM EST [facility] [address] [address] Jose Jamil MD [address] [address] 01/16/2027 8:30 AM EDT Office Visit [facility] [place] 85 [facility] [address] [place] [phone] Ning Hartman, PRECIPITATOR SUPERVISOR 85 [facility] 409 [place] [address] Health Maintenance Due Date Last Done Comments Advance Care Planning 1954 Hepatitis C Virus Screening 1954 DTaP/Tdap/Td Vaccines (1 - Tdap) 1973 Mammogram 1994 Colonoscopy 1999 Pneumococcal Vaccines 50+ (1 of 1 - PCV) 2004 RSV Vaccine 50 years and old er and Patients (1 - Risk 50-74 years 1-dose series) 2004 Zoster (Shingles) Vaccine (1 of 2) 2004 DXA Bone Density (Females,Ag es 65 and older) 2019 Influenza Vaccine 05/11/2025 COVID-19 Vaccine ( - 2024-2 6 season) 2025 Hepatitis B Vaccines Aged Out No long [...] made. GOAL DISCHARGED Patient will increase LUE tank setter helper/pinch strength by at least 10 lbs / 2lbs in order to increase independence opening containers in 6 weeks 08/16/2024 no progress with tank setter helper strength, continue with goal 09/27/2024 tank setter helper increased by 5 lbs. Progress made. GOAL DISCHARGED Patient will increase L digit ROM to complete full composite fist without discomfort in middle finger to increase independence in gripping/carrying tasks in 6 weeks. 08/16/2024 improved ROM with discomfort remaining in middle finger, continue with goal 09/27/2024 great improvements in ROM. GOAL MET OT LTG 2 Occupational Therapy No Canessa-Bi Staci fuentes, OT Note: Pt will be I in ongoing HEP. OT LTG 3 Occupational Therapy No Canessa-Bi Staci fuentes, OT Note: Pt will report pain <3/10 with light functional use in 6 weeks. OT LTG 4 Occupational Therapy No Canessa-Bi Staci fuentes, OT Note: Pt will be able to open a bottle with R hand without difficulty or pain in [address] [facility] [phone] [facility] [place] [address] MEDICARE PART A & B Care Teams Bottom Filler Relationship Specialty Start Date End Date John Carter MD [address] [place] [address] PCP - General General Medicine 05/16/24
--- OUTSIDE RECORDS SUMMARY | 2025-10-03 09:23 | XMS_ITS | Encounter Summary ---
Author Organization [employer] Address [address] [place] [address] 7 [place] [address] Care Team Providers Care Diesel Locomotive Firer Name Role Phone John Carter MD Primary Care Provider [phone] Sheron Díaz PharmD Unavailable [phone] Encounter Details Date Type Department Care Team (Late Contact Info) Description 07/13/2024 Orders Only [facility] [address] [place], [place] [phone] John Carter MD [address] [place], [place] [phone] Social History Tobacco Use Types Packs/Day Years [...] Description 10/15/2025 9:00 AM EST Medication Management [facility] [address] [place], [place] [phone] Sheron Díaz, PharmD [address] [place], [place] [phone] documented as of this encounter Visit Diagnoses Not on filedocumented in this encounter Care Teams Diesel Locomotive Firer Relationship Specialty Start Date End Date John Carter MD [address] [place] [address] PCP - General Internal Medicine 10/17/13 Sheron Díaz PharmD [address] [place] [phone] Pharmacist Internal Medicine 11/13/24 documented as of this encounter
--- OUTSIDE RECORDS SUMMARY | 2025-10-03 09:23 | XMS_ITS | Encounter Summary ---
Author Organization [facility] Address [address] [place] [address] 7 [place] [address] Care Team Providers Care Electrologist Name Role Phone John Carter MD Primary Care Provider Sheron Díaz PharmD Unavailable [phone] Encounter Details Date Type Department Care Team (Late st Contact Info) Description 02/15/2023 Orders Only [facility] [address] [place] [address] Echo Holloway LPN Social History Tobacco Use [...] Description 10/15/2025 9:00 AM EST Medication Management [facility] [address] [place] [address] Sheron Díaz, PharmD [address] [place] [address] documented as of this encounter Visit Diagnoses Not on filedocumented in this encounter Care Teams Electrologist Relationship Specialty Start Date End Date John Carter MD [address] [place] [address] PCP - General Internal Medicine 10/17/13 Sheron Díaz, PharmD [address] [place] [address] Pharmacist Internal Medicine 11/13/24 documented as of this encounter
--- OUTSIDE RECORDS SUMMARY | 2025-10-03 09:23 | XMS_ITS | Encounter Summary ---
Author Organization [employer] [facility] Address [address] [place] [address] [address], [place] [address] Care Team Providers Care Hedis Coordinator Name Role Phone John Carter MD Primary Care Provider Sheron Díaz PharmD Unavailable [phone] Reason for Visit * Reason Comments Med Refill Encounter Details Date Type Department Care Team ([facility] Contact Info) Description 10/06/2023 Refill [facility] [address] [place] [address] John Carter MD 505 [place] [address] Social History Tobacco Use Types Packs/Day Years [...] Upcoming Encounters Date Type Department Care Team ([facility] Contact Info) Description 10/15/2025 9:00 AM EST Medication Management [facility] [address] [place], [place] [phone] Sheron Díaz, PharmD [address] [place] [address] documented as of this encounter Visit Diagnoses Not on filedocumented in this encounter Care Teams Hedis Coordinator Relationship Specialty Start Date End Date John Carter MD [address] [place] [address] PCP - General Internal Medicine 10/17/13 Sheron Díaz PharmD [address] [place] [address] Pharmacist Internal Medicine 11/13/24 documented as of this encounter
--- OUTSIDE RECORDS SUMMARY | 2025-10-03 09:23 | XMS_ITS | Encounter Summary ---
Author Organization [employer] Address [address] [place] [address] [place], [place] [address] Care Team Providers Care Supervisor Computer Operations Name Role Phone John Carter MD Primary Care Provider Sheron Díaz PharmD Unavailable [phone] Reason for Visit * Reason Comments Med Change Request Encounter Details Date Type Department Care Team ([facility] Contact Info) Description 02/12/2023 Refill [facility] [address] [place], [place] [phone] John Carter MD 505 [place] [address] Cervical spondylosis without myelopathy Social History Tobacco [...] Upcoming Encounters Date Type Department Care Team ([facility] Contact Info) Description 10/15/2025 9:00 AM EST Medication Management [facility] [address] [place], [place] [phone] Sheron Díaz, PharmD 230 [place] [address] documented as of this encounter Visit Diagnoses Diagnosis Cervical spondylosis without myelopathy documented in this encounter Care Teams Supervisor Computer Operations Relationship Specialty Start Date End Date John Carter MD [address] [place] [address] PCP - General Internal Medicine 10/17/13 Sheron Díaz PharmD [address] [place] [phone] Pharmacist Internal Medicine 11/13/24 documented as of this encounter
--- OUTSIDE RECORDS SUMMARY | 2025-10-03 09:23 | XMS_ITS | Encounter Summary ---
Author Organization [employer] Address 75 [facility] 7 [place] [address] Care Team Providers Care Medical Coordinator Pesticide Use Name Role Phone John Carter MD Primary Care Provider [phone] Sheron Díaz PharmD Unavailable [phone] Reason for Referral * Consultation (Routine) - Closed Specialty Diagnoses / Procedures Referred By Contnathalie t Referred To Contact Gastroenterology Diagnoses Hepatic cyst Hepatomegaly John Carter MD 505 [place] [address] Phone: tel: fax: Lesli Del Cid MD [address] [place] [address] Phone: tel: fax: Referral ID Status Reason Start Date Expiration Date V isits Requested Visits Authorized [id number] Closed Specialty Services Required 08/28/2024 08/28/2025 1 1 Encounter Details Date Type Department Care Team (Late st Contact Info) Description 08/28/2024 Orders Only [facility] MED & PEDS 505 [place] [address] John Carter MD [address] [place] [address] [phone] Hepatic cyst (Primary Dx); Hepatomegaly Social History [...] 10/15/2025 9:00 AM EST Medication Management [facility] MED & PEDS 505 [place] [address] Sheron Díaz PharmD 230 [place] [address] Scheduled Referrals Name Type Priority Associated Diagnoses Order Schedule Referral to Gastroenterology Outpatient Referral Routine Hepatic cyst Hepatomegaly Expected: 08/28/2024 (Approximate), Expires: 08/28/2025 documented as of this encounter Visit Diagnoses Diagnosis Hepatic cyst- Primary Other specified disorders of liver Hepatomegaly documented in this encounter Care Teams Medical Coordinator Pesticide Use Relationship Specialty Start Date End Date Jhon Carter MD 505 [place] [address] PCP - General Internal Medicine 10/17/13 Sheron Díaz PharmD 230 [place] [address] Pharmacist Internal Medicine 11/13/24 documented as of this encounter
--- OUTSIDE RECORDS SUMMARY | 2025-10-03 09:23 | XMS_ITS | Encounter Summary ---
Author Organization [employer] Address [address] [place] [address] 7 [place] [address] Care Team Providers Care Sample Weaver Name Role Phone John Carter MD Primary Care Provider Sheron Díaz PharmD Unavailable [phone] Encounter Details Date Type Department Care Team (Late st Contact Info) Description 06/21/2024 Orders Only [facility] MED & PEDS 505 [place], [place] [phone] John Carter MD 505 [place] [address] Low vitamin D level (Primary Dx); Neuropathic [...] 9:00 AM EST Medication Management [facility] MED & PEDS 505 [place], [place] [phone] Sheron Díaz, PharmD [address] [place], [place] [phone] documented as of this encounter Visit Diagnoses Diagnosis Low vitamin D level- Primary Neuropathic pain documented in this encounter Care Teams Sample Weaver Relationship Specialty Start Date End Date John Carter MD [address] [place] [address] PCP - General Internal Medicine 10/17/13 Sheron Díaz PharmD [address] [place] [address] Pharmacist Internal Medicine 11/13/24 documented as of this encounter
--- OUTSIDE RECORDS SUMMARY | 2025-10-03 09:23 | XMS_ITS | Encounter Summary ---
Author Organization [employer] Address [address] [place] [address] 7 [place] [address] Care Team Providers Care Wardrobe Specialist Name Role Phone John Carter MD Primary Care Provider Sheron Díaz PharmD Unavailable [phone] Encounter Details Date Type Department Care Team (Late Contact Info) Description 04/26/2024 Orders Only [facility] MED & PEDS 505 [place], [place] [phone] John Carter MD 505 [place], [place] [phone] Low vitamin D level (Primary Dx) Social [...] Description 10/15/2025 9:00 AM EST Medication Management [facility] MED & PEDS 505 [place], [place] [phone] Sheron Díaz, PharmD 230 [place], [place] [phone] documented as of this encounter Visit Diagnoses Diagnosis Low vitamin D level- Primary documented in this encounter Care Teams Wardrobe Specialist Relationship Specialty Start Date End Date John Carter MD [address] [place] [address] PCP - General Internal Medicine 10/17/13 Sheron Díaz PharmD [address] [place] [address] Pharmacist Internal Medicine 11/13/24 documented as of this encounter
--- OUTSIDE RECORDS SUMMARY | 2025-10-03 09:23 | XMS_ITS | Encounter Summary ---
Author Organization [employer] [facility] Address [address] [place] [address] 7 [place] [address] Care Team Providers Care Sub Arc Operator Name Role Phone John Carter MD Primary Care Provider Sheron Díaz PharmD Unavailable [phone] Encounter Details Date Type Department Care Team (Late st Contact Info) Description 10/29/2022 Orders Only [facility] MED & PEDS 505 [place] [address] Meri Mckeon LPN Social History Tobacco Use [...] Description 10/15/2025 9:00 AM EST Medication Management [facility] MED & PEDS 505 [place] [address] Sheron Díaz, PharmD 230 [place] [address] documented as of this encounter Visit Diagnoses Not on filedocumented in this encounter Care Teams Sub Arc Operator Relationship Specialty Start Date End Date John Carter MD 505 [place] [address] PCP - General Internal Medicine 10/17/13 Sheron Díaz, RaynaD 230 [place] [address] Pharmacist Internal Medicine 11/13/24 documented as of this encounter
--- OUTSIDE RECORDS SUMMARY | 2025-10-03 09:23 | XMS_ITS | Encounter Summary ---
Author Organization [employer] Address [address] [address] Care Team Providers Care Continuous Towel Roller Name Role Phone John Carter MD Primary Care Provider Sheron Díaz PharmD Unavailable [phone] Reason for Visit * Reason Onset Date Comments Referral 12/20/2023 Encounter Details Date Type Department Care Team (Late st Contact Info) Description 12/20/2023 Telephone [facility] MEDICINE 230 [place] [address] John Carter MD [address] [place] [address] Referral Social History Tobacco Use Types Packs/Day [...] new referral: DATE: N/A TIME: N/A Address: [address] [place] [address] Visits: N/A Facility Name: [facility] Type of Specialist: Hand Specialist DX: Hand injury Phone #: [phone] Fax #: [phone] documented in this encounter Plan of Treatment Upcoming Encounters Date Type Department Care Team (Late st Contact Info) Description 10/15/2025 9:00 AM EST Medication Management [facility] CHC MED & PEDS 505 [place] [address] Sheron Díaz PharmD 230 [place] [address] documented as of this encounter Visit Diagnoses Not on filedocumented in this encounter Care Teams Continuous Towel Roller Relationship Specialty Start Date End Date John Carter MD 505 [place] [address] PCP - General Internal Medicine 10/17/13 Sheron Díaz PharmD 230 [place] [address] Pharmacist Internal Medicine 11/13/24 documented as of this encounter
--- OUTSIDE RECORDS SUMMARY | 2025-10-03 09:23 | XMS_ITS | Clinical Summary ---
Author Organization [facility] Prior to 03/10/[address] [place], [place] [id number] Care Team Providers Care Professional Athletes Coach Name Role Phone John Carter MD Primary Care Provider [phone] Allergies Active Allergy Reactions Criticality Noted Date [...] age to complete this topic Care Teams Professional Athletes Coach Relationship Specialty Start Date End Date John Carter MD [address] [place] [phone] PCP - General Internal Medicine 03/23/18
--- OUTSIDE RECORDS SUMMARY | 2025-10-03 09:23 | XMS_ITS | Encounter Summary ---
Author Organization [email or web address] Address [address] [place] [address] 7 [place] [address] Care Team Providers Care Ferry Terminal Supervisor Name Role Phone John Carter MD Primary Care Provider Sheron Díaz PharmD Unavailable [phone] Encounter Details Date Type Department Care Team (Late Contact Info) Description 04/12/2024 [facility] Health Information Management 230 [place], [place] [phone] Provider, MD Erin Social History Tobacco Use Types Packs/Day Years [...] 9:00 AM EST Medication Management [facility] MED & PEDS 505 [place], [place] [phone] Sheron Díaz, PharmD 230 [place], [place] [phone] documented as of this encounter Procedures Procedure Name Priority Date/Time Associated Diagnosis Comments EMG Routine 03/07/2024 12:58 PM EDT documented in this encounter Results * EMG (03/07/2024 12:58 PM EDT) us Historical Provider NEUROLOGY ORDERABLES Reyna l Result documented in this encounter Visit Diagnoses Not on filedocumented in this encounter Care Teams Ferry Terminal Supervisor Relationship Specialty Start Date End Date John Carter MD 505 [place] [address] PCP - General Internal Medicine 10/17/13 Sheron Díaz PharmD 230 [place] [address] Pharmacist Internal Medicine 11/13/24 documented as of this encounter
--- OUTSIDE RECORDS SUMMARY | 2025-10-03 09:23 | XMS_ITS | Encounter Summary ---
Author Organization [employer] Address [address] [place] [address] 7[place] [address] Care Team Providers Care Check Totaler Name Role Phone John Carter MD Primary Care Provider Sheron Díaz PharmD Unavailable [phone] Reason for Visit * Reason Comments Med Change Request Encounter Details Date Type Department Care Team ([facility] Contact Info) Description 02/19/2023 Refill [facility] MEDICINE 230 [place], [place] [phone] John Carter MD 505 [place] [address] Cervical spondylosis without myelopathy Social History Tobacco [...] Upcoming Encounters Date Type Department Care Team ([facility] Contact Info) Description 10/15/2025 9:00 AM EST Medication Management [facility] CH[facility] MED & PEDS 505 [place], [place] [phone] Sheron Díaz, PharmD 230 [place] [address] documented as of this encounter Visit Diagnoses Diagnosis Cervical spondylosis without myelopathy documented in this encounter Care Teams Check Totaler Relationship Specialty Start Date End Date John Carter MD [address] [place] [address] PCP - General Internal Medicine 10/17/13 Sheron Díaz PharmD [address] [place] [address] Pharmacist Internal Medicine 11/13/24 documented as of this encounter
--- OUTSIDE RECORDS SUMMARY | 2025-10-03 09:23 | XMS_ITS | Encounter Summary ---
Author Organization [employer] Address [address] [place] [address] [address] Care Team Providers Care Traffic Rate Analyst Name Role Phone John Carter MD Primary Care Provider Sheron Díaz PharmD Unavailable [phone] Reason for Visit * Reason Comments Med Change Request Encounter Details Date Type Department Care Team ([facility] Contact Info) Description 02/16/2023 Refill [facility] MEDICINE 230 [place], [place] [phone] John Carter MD 505 [place] [address] Cervical spondylosis without myelopathy Social History Tobacco [...] Upcoming Encounters Date Type Department Care Team ([facility] Contact Info) Description 10/15/2025 9:00 AM EST Medication Management [facility] CH[facility] MED & PEDS 505 [place], [place] [phone] Sheron Díaz, PharmD 230 [place] [address] documented as of this encounter Visit Diagnoses Diagnosis Cervical spondylosis without myelopathy documented in this encounter Care Teams Traffic Rate Analyst Relationship Specialty Start Date End Date John Carter MD [address] [place] [address] PCP - General Internal Medicine 10/17/13 Sheron Díaz PharmD [address] [place] [address] Pharmacist Internal Medicine 11/13/24 documented as of this encounter
--- OUTSIDE RECORDS SUMMARY | 2025-10-03 09:24 | XMS_ITS | Encounter Summary ---
Author Organization [employer] Address [address] [place] [address] Care Team Providers Care Library Associate Name Role Phone John Carter MD Primary Care Provider [phone] Sheron Díaz PharmD Unavailable [phone] Reason for Referral * Consultation (Routine) - Authorized Specialty Diagnoses / Procedures Referred By Contac t Referred To Contact Pharmacy Diagnoses Type 2 diabetes mellitus without complication, without long-term current use of insulin ([facility]) John Carter MD [address] [place] [address] Phone: tel: fax: Referral ID Status Reason Start Date Expiration Date Visits Requested Visits Authorized [id number] Authorized Consult and Treat 11/01/2024 11/01/2025 6 6 Encounter Details Date Type Department Care Team ([facility] st Contact Info) Description 11/01/2024 Orders Only [facility] CHC MED & PEDS [address] [place] [address] John Carter MD [address] [place] [address] Type 2 diabetes mellitus without complication, without long-term current use of insulin ([facility]) (Primary Dx) Social History Tobacco Use Types [...] [facility] 505 [place] [address] Sheron Díaz PharmD 230 [place] [address] Scheduled Referrals Name Type Priority Associated Diagnoses Orde r Schedule Referral to Pharmacy CDTM Outpatient Referral Routine Type 2 diabetes mellitus without complication, without long-term current use of insulin ([facility]) Ordered: 11/01/2024 documented as of this encounter Visit Diagnoses Diagnosis Type 2 diabetes mellitus without complication, without long-term current use of insulin ([facility])- Primary documented in this encounter Care Teams Library Associate Relationship Specialty Start Date End Date John Carter MD 505 [place] [address] PCP - General Internal Medicine 10/17/13 Sheron Díaz PharmD 230 [place] [address] Pharmacist Internal Medicine 11/13/24 documented as of this encounter
--- OUTSIDE RECORDS SUMMARY | 2025-10-03 09:24 | XMS_ITS | Encounter Summary ---
Author Organization [facility] Address [address] [place] [address] Care Team Providers Care Casing In Line Feeder Name Role Phone John Carter MD Primary Care Provider [phone] Encounter Details Date Type Department Care Team (Late st Contact Info) Description 07/11/2024 OAH Surg Order Orthopedic [address] [phone] Jose Jamil MD [address] [place] [address] Social History Tobacco Use Types Packs/Day Years [...] Description 10/12/2025 8:00 AM EST Treatment Orthopedic [address] [place] [address] Staci Horton, OT [address] [place] [address] 10/17/2025 9:00 AM EST Office Visit Orthopedic [address] [place] [address] Jose Jamil MD 31 [facility] 100 [place] [address] 01/16/2027 8:30 AM EDT Office Visit [facility] Vascular & Endovascular Surgery [place] [address] [facility] [address] [place] [address] Ning Hartman APRN 85 [facility] [address] [place], [place] [phone] documented as of this encounter Goals Goal [...] made. GOAL DISCHARGED Patient will increase LUE balance bridge inspector/pinch strength by at least 10 lbs / 2lbs in order to increase independence opening containers in 6 weeks 08/16/2024 no progress with balance bridge inspector strength, continue with goal 09/27/2024 balance bridge inspector increased by 5 lbs. Progress made. GOAL [...] on filedocumented in this encounter Care Teams Casing In Line Feeder Relationship Specialty Start Date End Date John Carter MD 230 [place] [address] PCP - General General Medicine 05/16/24 documented as of this encounter
--- OUTSIDE RECORDS SUMMARY | 2025-10-03 09:24 | XMS_ITS | Encounter Summary ---
Author Organization [facility] Address [address] [place] [address] Care Team Providers Care Compound Coating Machine Offbearer Name Role Phone John Carter MD Primary Care Provider [phone] Encounter Details Date Type Department Care Team (Late st Contact Info) Description 06/07/2024 Scanned Document Orthopedic [address] [address] Jose Jamil MD [address] [place] [address] Social History Tobacco Use Types Packs/Day Years [...] Description 10/12/2025 8:00 AM EST Treatment Orthopedic [address] [address] Staci Horton, OT 29 [place] [address] 10/17/2025 9:00 AM EST Office Visit Orthopedic [address] [address] Jose Jamil MD 31 [facility] 100 [place] [address] 01/16/2027 8:30 AM EDT Office Visit [facility] Vascular & Endovascular Surgery [place] 85 [facility] 409 [place] [address] Ning Hartman, BIRD TRAPPER 85 [facility] 409 [place] [address] documented as of this encounter Visit Diagnoses Not on filedocumented in this encounter Care Teams Compound Coating Machine Offbearer Relationship Specialty Start Date End Date John Carter MD [address] [place] [address] PCP - General General Medicine 05/16/24 documented as of this encounter
--- OUTSIDE RECORDS SUMMARY | 2025-10-03 09:24 | XMS_ITS | Encounter Summary ---
Author Organization [facility] Address [address] [place] [address] Care Team Providers Care Hide Spreader Name Role Phone John Carter MD Primary Care Provider [phone] Reason for Referral * Outpatient Surgery (Routine) - Closed Specialty Diagnoses / Procedures Referred By Fermin glover Referred To Contact Hand Surgery Diagnoses Right carpal tunnel syndrome Cubital tunnel syndrome on right Jose Jamil MD [address] [place] [address] Phone: tel: fax: Referral ID Status Reason Start Date Expiration Date Visits Re quested Visits Authorized [id number] Closed 07/11/2024 07/12/2025 1 1 Question Answer Primary Procedure: 10297 - Cubital Tunnel Additional Procedure(s): 90054 - Carpal tunnel Procedure: RIGHT CARPAL TUNNEL RELEASE/RIGHT CUBITAL TUNNEL RELEASE WITH POSSIBLE ANTERIOR TRANSPOSITION OF THE NERVE Surgery Date 07/13/2024 Laterality: Right Performing Location: [facility] Duration (Mins): 45 Admission: Outpatient Anesthesia: MAC Workers Comp? No Encounter Details Date Type Department Care Team (Late st Contact Info) Description 07/11/2024 OA Surg Order [facility] [address] [address] Jose Jamil MD [address] [place] [address] Right carpal tunnel syndrome (Primary Dx); Cubital [...] 10/12/2025 8:00 AM EST [facility] [address] [place] [address] Staci Horton OT 29 [facility] [place] [address] 10/17/2025 9:00 AM EST [facility] [address] [place] [address] Jose Jamil MD 31 [facility] 100 [place] [address] 01/16/2027 8:30 AM EDT Office Visit [facility] Vascular & Endovascular Surgery [place] [address] [phone] Ning Hartman APRN 85 [facility] 409 [place] [address] Scheduled Referrals Name Type Priority Associated Diagnoses [...] made. GOAL DISCHARGED Patient will increase LUE water reclamation systems operator/pinch strength by at least 10 lbs / 2lbs in order to increase independence opening containers in 6 weeks 08/16/2024 no progress with water reclamation systems operator strength, continue with goal 09/27/2024 water reclamation systems operator increased by 5 lbs. Progress made. GOAL [...] right documented in this encounter Care Teams Hide Spreader Relationship Specialty Start Date End Date John Carter MD 230 [place] [address] PCP - General General Medicine 05/16/24 documented as of this encounter
--- OUTSIDE RECORDS SUMMARY | 2025-10-03 09:24 | XMS_ITS | Encounter Summary ---
Author Organization [facility] Address 100 [place] [address] Care Team Providers Care Farm Owner Operator Name Role Phone John Carter MD Primary Care Provider [phone] Encounter Details Date Type Department Care Team (Late st Contact Info) Description 09/21/2024 Scanned Document [facility] Vascular & Endovascular Surgery [place] [address] [phone] Ning Hartman, SECURED ENTRANCE MONITOR 85 [facility] 409 [place] [address] Social History Tobacco Use Types Packs/Day Years [...] 10/12/2025 8:00 AM EST [facility] [address] [place] [address] Staci Horton, OT 29 [place] [address] 10/17/2025 9:00 AM EST [facility] Visit [facility] [place] 7 [facility] [address] [place] [address] Jose Jamil MD 31 [facility] 100 [place] [address] 01/16/2027 8:30 AM EDT Office Visit [facility] Vascular & Endovascular Surgery [place] 85 [facility] [address] [place] [phone] Ning Hartman, FIDELINA 85 [facility] [address] [place], [place] [phone] documented as of this encounter Goals Goal [...] made. GOAL DISCHARGED Patient will increase LUE rubber off/pinch strength by at least 10 lbs / 2lbs in order to increase independence opening containers in 6 weeks 08/16/2024 no progress with rubber off strength, continue with goal 09/27/2024 rubber off increased by 5 lbs. Progress made. GOAL [...] on filedocumented in this encounter Care Teams Farm Owner Operator Relationship Specialty Start Date End Date John Carter MD [address] [place] [address] PCP - General General Medicine 05/16/24 documented as of this encounter
--- OUTSIDE RECORDS SUMMARY | 2025-10-03 09:24 | XMS_ITS | Encounter Summary ---
Author Organization [employer] Address 75 [facility] 7 [place] [address] Care Team Providers Care Research Leader Name Role Phone John Carter MD Primary Care Provider Sheron Díaz PharmD Unavailable [phone] Encounter Details Date Type Department Care Team (Late st Contact Info) Description 10/18/[address] [facility] MED & PEDS 505 [place], [place] [phone] John Carter MD 505 [place] [address] Social History Tobacco Use Types Packs/Day Years [...] encounter Miscellaneous Notes * Telephone Encounter - aDrleen Wharton - 10/18/2024 12:40 PM EST Tc from pt requesting to switch [place] order to [place] location on [address]. Pharmacy Technician Trainee requested furtherinformation but pt inform nurses should know . Please call pt for further information. documented in this encounter Plan of Treatment Upcoming Encounters Date Type Department Care Team (Late st Contact Info) Description 10/15/2025 9:00 AM EST Medication Management [facility] MED & PEDS 505 [place] [address] Sheron Díaz PharmD 230 [place] [address] documented as of this encounter Visit Diagnoses Not on filedocumented in this encounter Care Teams Research Leader Relationship Specialty Start Date End Date John Carter MD 505 [place] [address] PCP - General Internal Medicine 10/17/13 Sheron Díaz PharmD 230 [place] [address] Pharmacist Internal Medicine 11/13/24 documented as of this encounter
--- OUTSIDE RECORDS SUMMARY | 2025-10-03 09:24 | XMS_ITS | Encounter Summary ---
Author Organization [facility] Address [address] [place] [phone] Care Team Providers Care Shop Director Name Role Phone John Carter MD Primary Care Provider [phone] Encounter Details Date Type Department Care Team (Late st Contact Info) Description 07/13/2024 Scanned Document Orthopedic [address] [phone] Jose Jamil MD [address] [place] [address] Social History Tobacco Use Types Packs/Day Years [...] Description 10/12/2025 8:00 AM EST Treatment Orthopedic [address] [place] [address] Staci Horton, OT [address] [place], [place] [id number] 10/17/2025 9:00 AM EST Office Visit Orthopedic [address] [place] [address] Jose Jamil MD 31 [facility] 100 [place] [address] 01/16/2027 8:30 AM EDT Office Visit [facility] [place] 85 [facility] [address] [place] [phone] Ning Hartman, FIDELNIA 85 [facility] [address] [place], [place] [phone] documented as of this encounter Goals Goal [...] made. GOAL DISCHARGED Patient will increase LUE dramatic reader/pinch strength by at least 10 lbs / 2lbs in order to increase independence opening containers in 6 weeks 08/16/2024 no progress with dramatic reader strength, continue with goal 09/27/2024 dramatic reader increased by 5 lbs. Progress made. GOAL [...] on filedocumented in this encounter Care Teams Shop Director Relationship Specialty Start Date End Date John Carter MD [address] [place] [address] PCP - General General Medicine 05/16/24 documented as of this encounter
--- OUTSIDE RECORDS SUMMARY | 2025-10-03 09:24 | XMS_ITS | Encounter Summary ---
Author Organization [facility] Address [address] [place] [address] Care Team Providers Care Flotation Tender Name Role Phone John Carter MD Primary Care Provider [phone] Encounter Details Date Type Department Care Team (Late st Contact Info) Description 06/27/2024 Scanned Document Orthopedic [address] [phone] Jose Jamil MD [address] [place] [address] Social History Tobacco Use Types Packs/Day Years [...] Description 10/12/2025 8:00 AM EST Treatment Orthopedic [address] [place] [phone] Staci Horton, OT [address] [place], [place] [phone] 10/17/2025 9:00 AM EST Office Visit Orthopedic [address] [place] [phone] Jose Jamil MD 31 [facility] 100 [place] [address] 01/16/2027 8:30 AM EDT Office Visit [facility] [place] 85 [facility] 409 [place] [phone] Ning Hartman, AMPOULE WASHING MACHINE OPERATOR 85 [facility] 409 [place] [address] documented as of this encounter Visit Diagnoses Not on filedocumented in this encounter Care Teams Flotation Tender Relationship Specialty Start Date End Date John Carter MD [address] [place] [id number] PCP - General General Medicine 05/16/24 documented as of this encounter
--- OUTSIDE RECORDS SUMMARY | 2025-10-03 09:24 | XMS_ITS | Encounter Summary ---
Author Organization [facility] Address [address] [place] [address] Care Team Providers Care Staff Genetic Counselor Name Role Phone John Carter MD Primary Care Provider [phone] Encounter Details Date Type Department Care Team (Late st Contact Info) Description 06/27/2024 Scanned Document Orthopedic [address] [phone] Jose Jamil MD [address] [place] [phone] Social History Tobacco Use Types Packs/Day Years [...] Description 10/12/2025 8:00 AM EST Treatment Orthopedic [address] [place] [address] Staci Horton, OT 29 [place], [place] [address] 10/17/2025 9:00 AM EST Office Visit Orthopedic [address] [place] [address] Jose Jamil MD 31 [facility] 100 [place] [address] 01/16/2027 8:30 AM EDT Office Visit [facility] [place] 85 [facility] 409 [place] [phone] Ning Hartman, DENTAL HYGIENIST 85 [facility] 409 [place] [address] documented as of this encounter Visit Diagnoses Not on filedocumented in this encounter Care Teams Staff Genetic Counselor Relationship Specialty Start Date End Date John Carter MD [address] [place] [phone] PCP - General General Medicine 05/16/24 documented as of this encounter
== END 2025-10-03 09:20 | disposition home or self-care (01) ==
LOC: HO.HMGCX 09:19
PROVIDERS: PCP Internal Medicine; Visit Provider Student in an Organized Health Care Education/Training Program
DX: E55.9 Vitamin D deficiency, unspecified (principal); E04.2 Nontoxic multinodular goiter
CPT/HCPCS: 76536

== ENCOUNTER → 2025-10-03 09:21 | Outpatient (BNV) | payer MEDICARE, SELFPAY | PROVIDERS: PCP Internal Medicine; Visit Provider Radiology Diagnostic Radiology | DX: E04.2 Nontoxic multinodular goiter (principal) | CPT/HCPCS: 76536 ==